=== PATIENT | male | born 1955 | race Caucasian/White ===

== ENCOUNTER 2017-12-26 13:42 | Observation (INO) | payer OTHER ==
[2017-12-26] MEDS ORDERED: METHYLPREDNISOLONE 125 MG INJ ONE (14:19)
[2017-12-26] MEDS ORDERED: CEFTRIAXONE/SWI 1gm 1 GM/10 ML SYR ONE (14:20)
[2017-12-26] MEDS ORDERED: AZITHROMYCIN 500 MG/250 ML BAG ONE (14:20)
[2017-12-26] MEDS ORDERED: ALBUTEROL 2.5 MG/3 ML NEB SOL ONE ×2 (14:20→14:55)
[2017-12-26] MEDS ORDERED: ACETAMINOPHEN 325 MG TABLET ONE (14:20)
[2017-12-26] MEDS ORDERED: IPRATROPIUM BROM 0.5MG/2.5ML ONE (14:20)
[2017-12-26 14:23] LABS: Absolute Lymphocytes (CBC) 1.1 K/uL (0.7-4.9); Absolute Monocytes 0.7 K/uL (0.1-1.3); Absolute Neutrophil 7.9 K/uL (1.8-8.0); Basophils % 0.7 % (0-1.3); Eosinophils % 2.4 % (0-4.4); Hematocrit 44.6 % (39.6-49.0); Lymphocytes % 11.2 % (15.3-44.8); MCH 31.6 pg (27.0-35.0); MCV 93.3 fL (80-100); MPV 8.7 fL (7.6-11.3); Monocytes % 7.3 % (3.3-12.3); RBC Red Blood Cell Count 4.78 M/uL (4.33-5.43)
[2017-12-26 14:30] LABS: Protime INR 0.97
[2017-12-26 14:50] LABS: ALT/SGPT 52 U/L (12-78); AST/SGOT 23 U/L (15-37); Albumin 4.3 g/dL (3.4-5.0); Alkaline Phosphatase 100 U/L (45-117); BUN Blood Urea Nitrogen 13 mg/dL (7-18); Bicarbonate 27 mmol/L (21-32); Bilirubin Direct 0.1 mg/dL (0-0.2); Bilirubin Total 0.6 mg/dL (0.2-1.0); CKMB Creatine Kinase MB < 1.0 ng/mL (0.3-3.6); Creatine Phosphokinase 199 U/L (39-308); Glucose Level 119 mg/dL (74-106); NT PRO-BNP 40 pg/mL (<125); Potassium 3.7 mmol/L (3.5-5.1); Protein, Total 8.3 g/dL (6.4-8.2); Sodium Level 137 mmol/L (136-145)
[2017-12-26] MEDS ORDERED: predniSONE 20 MG TAB ONE (14:55)
--- NOTE | 2017-12-26 15:05 | RAD REPORT ---
EXAM DESCRIPTION: RAD - Chest Single View - 12/26/2017 2:55 pm CLINICAL HISTORY: COUGH Chest pain. COMPARISON: CHEST SINGLE VIEW dated 02/22/2015; CHEST PA AND LAT 2 VIEW dated 12/30/2010; CHEST SINGLE VIEW dated 10/02/2010 FINDINGS: Portable technique limits examination quality. The lungs are grossly clear. The heart is normal in size. No displaced fractures. IMPRESSION: No acute intrathoracic process suspected.
--- NOTE | 2017-12-26 16:00 | ER ---
Nurse's Notes [facility] Name: Scott Liao Age: 62 yrs Sex: Male : 1955 Arrival Date: 12/26/2017 Time: 13:46 Bed 14 Private MD: Guzman Lopez Diagnosis: Hypoxemia;Chronic obstructive pulmonary disease with (acute) exacerbation;Fever, unspecified;Bronchitis, not specified as acute or chronic Presentation: 12/26 13:50 Presenting complaint: Patient states: Productive cough, shortness of breath on aj1 exertion, nasal congestion, and fever since yesterday. Transition of care: patient was not received from another setting of care. Onset of symptoms was August 25, 2017. Risk Assessment: Do you want to hurt yourself or someone else? Patient reports no desire to harm self or others. Initial Sepsis Screen: Does the patient meet any 2 criteria? No. Patient's initial sepsis screen is negative. Does the patient have a suspected source of infection? Yes: Productive cough/pneumonia. Care prior to arrival: None. 13:50 Method Of Arrival: Ambulatory aj1 13:50 Acuity: JOANA 3 aj1 Triage Assessment: 13:54 General: Appears in no apparent distress. comfortable, Behavior is calm, cooperative, aj1 appropriate for age. Pain: Complains of pain in generalized body aches Pain currently is 9 out of 10 on a pain scale. Neuro: Level of Consciousness is awake, alert, obeys commands. Cardiovascular: Patient's skin is warm and dry. Respiratory: Reports shortness of breath on exertion cough that is productive, Airway is patent Respiratory effort is even, unlabored, Respiratory pattern is regular, symmetrical, Onset: The symptoms/episode began/occurred yesterday. 14:29 Respiratory: the patient has mild shortness of breath. tw2 Historical: - Allergies: 13:54 No Known Allergies; aj1 - Home Meds: 13:54 blood pressure medicine [Active]; allopurinol 300 mg Oral tab 1 tab as needed for Gouty aj1 Arthritis [Active]; colchicine 0.6 mg Oral cap 1 cap as needed [Active]; - PMHx: 13:54 Gout; Hypertension; aj1 - PSHx: 13:54 eye surgery; back surgery; Knee surgery; repair of femur fracture- plates in leg; aj1 - Immunization history:: Flu vaccine is not up to date. - Social history:: Smoking status: Patient/guardian denies using tobacco. - Ebola Screening: : Patient denies travel to an Ebola-affected area in the 21 days before illness onset. - Family history:: not pertinent. Screenin:29 Abuse screen: Denies threats or abuse. Nutritional screening: No deficits noted. tw2 Tuberculosis screening: No symptoms or risk factors identified. Fall Risk None identified. Assessment: 13:59 General: Appears in no apparent distress. Behavior is calm, cooperative, appropriate tw2 for age. Pain: Denies pain. Neuro: Level of Consciousness is awake, alert, obeys commands, Oriented to person, place, time, situation. Cardiovascular: Heart tones S1 S2 Capillary refill < 3 seconds Patient's skin is warm and dry. Rhythm is regular. Respiratory: Reports shortness of breath cough that is with nasal congestion since yesterday Airway is patent Respiratory effort is even, unlabored, Respiratory pattern is regular, symmetrical, Breath sounds are diminished bilaterally. Breath sounds with wheezes bilaterally. GI: No signs and/or symptoms were reported involving the gastrointestinal system. Abdomen is flat. GI: Bowel sounds present X 4 quads. : No signs and/or symptoms were reported regarding the genitourinary system. EENT: Reports nasal congestion nasal discharge. Derm: No signs and/or symptoms reported regarding the dermatologic system. Skin is intact, is healthy with good turgor, Skin temperature is warm. Musculoskeletal: Circulation, motion, and sensation intact. Range of motion: intact in all extremities. 14:54 Reassessment: Patient appears in no apparent distress at this time. No changes from tw2 previously documented assessment. Patient and/or family updated on plan of care and expected duration. Pain level reassessed. Patient is alert, oriented x 3, equal unlabored respirations, skin warm/dry/pink. 15:44 Respiratory: Breath sounds with wheezes bilaterally. mg2 Vital Signs: 13:54 BP 144 / 92; Pulse 93; Resp 20; Temp 100.2(O); Pulse Ox 97% on R/A; Weight 88.45 kg aj1 (R); Height 5 ft. 10 in. (177.80 cm) (R); Pain 9/10; 14:53 BP 129 / 84; Pulse 105; Resp 18; Pulse Ox 96% on R/A; tw2 15:30 BP 125 / 81; Pulse 107; Resp 20; Temp 97.9(O); Pulse Ox 98% ; Pain 0/10; mg2 13:54 Body Mass Index 27.98 (88.45 kg, 177.80 cm) 1 ED Course: 13:46 Patient arrived in ED. rg4 13:46 Guzman Lopez DO is Private Physician. rg4 13:52 Triage completed. aj1 13:54 Arm band placed on Patient placed in an exam room. aj1 13:54 Bed in low position. Adult w/ patient. monitoring coordinator on. Pulse ox on. NIBP on. tw2 13:56 Steffen Escobar MD is Attending Physician. rick 13:57 Ya Wright RN is Primary Nurse. tw2 14:10 First set of blood cultures drawn by me. tw2 14:10 EKG done, by ED staff, reviewed by Steffen Escobar MD. dh3 14:11 Inserted saline lock: 22 gauge in right antecubital area, using aseptic technique. tw2 Blood collected. 14:20 Flu and/or RSV swab sent to lab. dh3 14:23 Second set of blood cultures drawn 2nd site. tw2 14:26 Second set of blood cultures drawn by me, by venipuncture 23G to left ac. dh3 14:52 X-ray completed. Portable x-ray completed in exam room. Patient tolerated procedure ag1 well. 14:53 XRAY Chest (1 view) In Process Unspecified. EDMS 15:03 Report given to RENETTA Fuller. tw2 15:04 Primary Nurse role handed off by Ya Wright RN tw2 15:30 Lucas Cardona RN is Primary Nurse. mg2 15:58 Thalia Pichardo MD is Hospitalizing Provider. rick 17:01 No provider procedures requiring assistance completed. Patient admitted, IV remains in mg2 place. Administered Medications: 14:22 Drug: SOLU-Medrol 125 mg Route: IVP; Site: right antecubital; tw2 14:28 Follow up: Response: No adverse reaction tw2 14:22 Drug: Albuterol - atroVENT (3:1) (2.5 mg - 0.5 mg) 3 ml Route: Nebulizer; tw2 14:55 Follow up: Response: No adverse reaction tw2 14:22 Drug: Tylenol 650 mg Route: PO; tw2 15:42 Follow up: Response: No adverse reaction; Temperature is decreased mg2 14:25 Drug: Rocephin - (cefTRIAXone) 1 grams Route: IVPB; Infused Over: 5 mins; Site: right tw2 antecubital; 14:30 Follow up: Response: No adverse reaction; IV Status: Completed infusion tw2 14:35 Drug: Zithromax 500 mg Route: IVPB; Infused Over: 1 hrs; Site: right antecubital; tw2 15:42 Follow up: Response: No adverse reaction; IV Status: Completed infusion mg2 14:53 Drug: Albuterol 5 mg Route: Inhalation; tw2 14:55 Drug: predniSONE 60 mg Route: PO; tw2 15:00 Follow up: Response: No adverse reaction tw2 Outcome: 15:59 Decision to Hospitalize by Provider. rick 17:24 Admitted to Tele mg2 17:24 Admitted to Tele accompanied by tech, via wheelchair, room 406, with chart, Report called to RENETTA Patel 17:24 Condition: stable 17:24 Instructed on the need for admit, Demonstrated understanding of instructions. 17:54 Patient left the ED. iw Signatures: Dispatcher [employer] EDSierra Campos RN RN Steffen Real MD MD cha Williams, Irene RN Angela Cortes ag1 Ya Wright RN RN 2 Wendie Chavez 4 Jeannette Nichols 3 Lucas Cardona RN RN mg2 Corrections: (The following items were deleted from the chart) 14:12 14:11 Inserted saline lock: 22 gauge in right antecubital area, using aseptic tw2 technique. Blood collected. tw2 14:12 14:10 First set of blood cultures drawn by ED staff, tw2 tw2
--- NOTE | 2017-12-26 16:00 | EDPHYS ---
Physician Documentation [facility] Name: Scott Liao Age: 62 yrs Sex: Male : 1955 Arrival Date: 12/26/2017 Time: 13:46 Bed 14 Private MD: Guzman Lopez ED Physician Steffen Escobar HPI: 12/26 14:11 This 62 yrs old Male presents to ER via Ambulatory with complaints of Cough, rick Breathing Difficulty. 14:11 The patient or guardian reports airway noise, cough. Onset: The symptoms/episode rick began/occurred 2 day(s) ago. Severity of symptoms: At their worst the symptoms were mild, in the emergency department the symptoms are unchanged. Modifying factors: The symptoms are alleviated by nothing, the symptoms are aggravated by nothing. Associated signs and symptoms: The patient has no apparent associated signs or symptoms. The patient has not experienced similar symptoms in the past. Historical: - Allergies: 13:54 No Known Allergies; aj1 - Home Meds: 13:54 blood pressure medicine [Active]; allopurinol 300 mg Oral tab 1 tab as needed for Gouty aj1 Arthritis [Active]; colchicine 0.6 mg Oral cap 1 cap as needed [Active]; - PMHx: 13:54 Gout; Hypertension; aj1 - PSHx: 13:54 eye surgery; back surgery; Knee surgery; repair of femur fracture- plates in leg; aj1 - Immunization history:: Flu vaccine is not up to date. - Social history:: Smoking status: Patient/guardian denies using tobacco. - Ebola Screening: : Patient denies travel to an Ebola-affected area in the 21 days before illness onset. - Family history:: not pertinent. ROS: 14:11 Constitutional: Negative for fever, chills, and weight loss, Eyes: Negative for injury, rick pain, redness, and discharge, ENT: Negative for injury, pain, and discharge, Neck: Negative for injury, pain, and swelling, Cardiovascular: Negative for chest pain, palpitations, and edema, Abdomen/GI: Negative for abdominal pain, nausea, vomiting, diarrhea, and constipation, Back: Negative for injury and pain, : Negative for injury, bleeding, discharge, and swelling, MS/Extremity: Negative for injury and deformity, Skin: Negative for injury, rash, and discoloration, Neuro: Negative for headache, weakness, numbness, tingling, and seizure, Psych: Negative for depression, anxiety, suicide ideation, homicidal ideation, and hallucinations, Allergy/Immunology: Negative for hives, rash, and allergies, Endocrine: Negative for neck swelling, polydipsia, polyuria, polyphagia, and marked weight changes, Hematologic/Lymphatic: Negative for swollen nodes, abnormal bleeding, and unusual bruising. 14:11 Respiratory: Positive for cough, shortness of breath, wheezing, inspiratory, expiratory. Exam: 14:11 Constitutional: This is a well developed, well nourished patient who is awake, alert, rick and in no acute distress. Head/Face: Normocephalic, atraumatic. Eyes: Pupils equal round and reactive to light, extra-ocular motions intact. Lids and lashes normal. Conjunctiva and sclera are non-icteric and not injected. Cornea within normal limits. Periorbital areas with no swelling, redness, or edema. ENT: Nares patent. No nasal discharge, no septal abnormalities noted. Tympanic membranes are normal and external auditory canals are clear. Oropharynx with no redness, swelling, or masses, exudates, or evidence of obstruction, uvula midline. Mucous membranes moist. Neck: Trachea midline, no thyromegaly or masses palpated, and no cervical lymphadenopathy. Supple, full range of motion without nuchal rigidity, or vertebral point tenderness. No Meningismus. Chest/axilla: Normal chest wall appearance and motion. Nontender with no deformity. No lesions are appreciated. Cardiovascular: Regular rate and rhythm with a normal S1 and S2. No gallops, murmurs, or rubs. Normal PMI, no JVD. No pulse deficits. Abdomen/GI: Soft, non-tender, with normal bowel sounds. No distension or tympany. No guarding or rebound. No evidence of tenderness throughout. Back: No spinal tenderness. No costovertebral tenderness. Full range of motion. Male : Normal genitalia with no discharge or lesions. Skin: Warm, dry with normal turgor. Normal color with no rashes, no lesions, and no evidence of cellulitis. MS/ Extremity: Pulses equal, no cyanosis. Neurovascular intact. Full, normal range of motion. Neuro: Awake and alert, GCS 15, oriented to person, place, time, and situation. Cranial nerves II-XII grossly intact. Motor strength 5/5 in all extremities. Sensory grossly intact. Cerebellar exam normal. Normal gait. Psych: Awake, alert, with orientation to person, place and time. Behavior, mood, and affect are within normal limits. 14:11 Respiratory: the patient does not display signs of respiratory distress, Respirations: normal, no acute changes, labored breathing, that is mild, Breath sounds: bronchial sounds, decreased breath sounds, rhonchi, wheezing: inspiratory expiratory 15:56 Musculoskeletal/extremity: DVT Exam: No signs of deep vein thrombosis. no pain, no rick swelling, no tenderness, negative Homans' sign noted on exam, no appreciated bluish discoloration, no erythema, no increased warmth. Vital Signs: 13:54 BP 144 / 92; Pulse 93; Resp 20; Temp 100.2(O); Pulse Ox 97% on R/A; Weight 88.45 kg aj1 (R); Height 5 ft. 10 in. (177.80 cm) (R); Pain 9/10; 14:53 BP 129 / 84; Pulse 105; Resp 18; Pulse Ox 96% on R/A; tw2 15:30 BP 125 / 81; Pulse 107; Resp 20; Temp 97.9(O); Pulse Ox 98% ; Pain 0/10; mg2 13:54 Body Mass Index 27.98 (88.45 kg, 177.80 cm) aj1 MDM: 13:56 Patient medically screened. [facility] 14:13 Data reviewed: vital signs, nurses notes, lab test result(s), EKG, radiologic studies, [facility] CT scan, plain films. 12/26 14:03 Order name: Basic Metabolic Panel; Complete Time: 14:54 tw2 12/26 14:03 Order name: CBC with Diff; Complete Time: 14:40 tw2 12/26 14:03 Order name: Ckmb; Complete Time: 14:54 tw2 12/26 14:03 Order name: CPK; Complete Time: 14:54 tw2 12/26 14:03 Order name: LFT's; Complete Time: 14:54 tw2 12/26 14:03 Order name: Magnesium; Complete Time: 14:54 tw2 12/26 14:03 Order name: NT PRO-BNP; Complete Time: 14:54 tw2 12/26 14:03 Order name: PT-INR; Complete Time: 14:40 12/26 14:03 Order name: Ptt, Activated; Complete Time: 14:40 12/26 14:03 Order name: Troponin (emerg Dept Use Only); Complete Time: 14:54 12/26 14:03 Order name: XRAY Chest (1 view); Complete Time: 15:47 12/26 14:03 Order name: Blood Culture Adult (2) [facility] 12/26 14:10 Order name: Influenza Screen (a \T\ B); Complete Time: 14:40 [facility] 12/26 14:03 Order name: EKG; Complete Time: 14:04 12/26 14:03 Order name: Cardiac monitoring; Complete Time: 14:04 12/26 14:03 Order name: EKG - Nurse/Tech; Complete Time: 14:28 12/26 14:03 Order name: IV Saline Lock; Complete Time: 14:28 12/26 14:03 Order name: Labs collected and sent; Complete Time: 14:28 12/26 14:03 Order name: O2 Per Protocol; Complete Time: 14:04 12/26 14:03 Order name: O2 Sat Monitoring; Complete Time: 14:04 tw2 Administered Medications: 14:22 Drug: SOLU-Medrol 125 mg Route: IVP; Site: right antecubital; tw2 14:28 Follow up: Response: No adverse reaction tw2 14:22 Drug: Albuterol - atroVENT (3:1) (2.5 mg - 0.5 mg) 3 ml Route: Nebulizer; tw2 14:55 Follow up: Response: No adverse reaction tw2 14:22 Drug: Tylenol 650 mg Route: PO; tw2 15:42 Follow up: Response: No adverse reaction; Temperature is decreased mg2 14:25 Drug: Rocephin - (cefTRIAXone) 1 grams Route: IVPB; Infused Over: 5 mins; Site: right tw2 antecubital; 14:30 Follow up: Response: No adverse reaction; IV Status: Completed infusion tw2 14:35 Drug: Zithromax 500 mg Route: IVPB; Infused Over: 1 hrs; Site: right antecubital; tw2 15:42 Follow up: Response: No adverse reaction; IV Status: Completed infusion mg2 14:53 Drug: Albuterol 5 mg Route: Inhalation; tw2 14:55 Drug: predniSONE 60 mg Route: PO; tw2 15:00 Follow up: Response: No adverse reaction tw2 Disposition: 12/26/17 15:59 Hospitalization ordered by Thalia Pichardo for Observation. Preliminary diagnosis are Hypoxemia, Chronic obstructive pulmonary disease with (acute) exacerbation, Fever, unspecified, Bronchitis, not specified as acute or chronic. - Bed requested for Telemetry/MedSurg (observation). - Status is Observation. iw - Condition is Fair. - Problem is new. - Symptoms have improved. UTI on Admission? No Signatures: Dispatcher [employer] EDMS Cristina Le Angela RN RN aj1 Steffen Escobar MD MD cha Williams, Irene, RN RN iw Ya Wright RN RN tw2 Lucas Cardona RN mg2 Corrections: (The following items were deleted from the chart) 16:38 15:59 Hospitalization Ordered by Thalia Pichardo MD for Observation. Preliminary bd diagnosis is Hypoxemia; Chronic obstructive pulmonary disease with (acute) exacerbation; Fever, unspecified; Bronchitis, not specified as acute or chronic. Bed requested for Telemetry/MedSurg (observation). Status is Observation. Condition is Fair. Problem is new. Symptoms have improved. UTI on Admission? No. rick 17:54 16:38 12/26/2017 15:59 Hospitalization Ordered by Thalia Pichardo MD for Observation. iw Preliminary diagnosis is Hypoxemia; Chronic obstructive pulmonary disease with (acute) exacerbation; Fever, unspecified; Bronchitis, not specified as acute or chronic. Bed requested for Telemetry/MedSurg (observation). Status is Observation. Condition is Fair. Problem is new. Symptoms have improved. UTI on Admission? No. bd
[2017-12-26] MEDS ORDERED: ONDANSETRON 4 MG/2 ML VIAL IV PRN (18:17)
[2017-12-26] MEDS ORDERED: ACETAMINOPHEN 500 MG TAB PO PRN (18:17)
[2017-12-26] MEDS ORDERED: ZOLPIDEM TARTRATE 5 MG TABLET PO PRN (18:17)
[2017-12-26] MEDS ORDERED: COLCHICINE 0.6 MG TAB PO ONE (18:25)
[2017-12-26] MEDS: NA CHLORIDE 0.9% 1,000 ML IV SCH (19:06)
[2017-12-26] MEDS: METHYLPREDNISOLONE 40 MG INJ IV SCH (19:07)
[2017-12-26] MEDS ORDERED: ALBUTEROL 2.5 MG/3 ML NEB SOL NEB SCH (20:00)
[2017-12-26] MEDS ORDERED: Levofloxacin 750mg IV 750 MG/150 ML BAG IV SCH (20:00)
[2017-12-26] MEDS ORDERED: ENOXAPARIN 40 MG/0.4 ML SQ SCH (20:00)
[2017-12-26] MEDS: ALBUTEROL 2.5 MG/3 ML NEB SOL NEB SCH (20:05)
[2017-12-26] MEDS: IPRATROPIUM BROM 0.5MG/2.5ML NEB SCH (20:05)
--- NOTE | 2017-12-26 21:27 | HP ---
Date of Admission: 12/26/2017 Reason For Admission: Shortness of breath. History Of Present Illness: This is a 62-year-old gentleman with past medical history significant fo r hypertension and gout, who presented with history of 2 days of progressive shortness of breath that got much worse last night, associated with productive cough, yellow white sputum. The patient denie s any history of smoking, but he dips tobacco. In the emergency room, he was evaluated. Chest x-ray done and was negative. CBC was within normal limits, also CMP. The patient was started on IV antib iotic with ceftriaxone and Zithromax and given Solu-Medrol for presumed bronchitis versus COPD. The patient currently is feeling much better. He is on room air. He thinks his breathing is much better since he got breathing treatment. Review of Systems: Otherwise negative. Past Medical History: Positive for hypertension, gout. Past Surgical History: Significant for eye surgery, back surgery, knee surgery, repair of femoral fr acture. Allergies: NONE. Social History: The patient is . He has 3 kids. 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 He does not use any drugs. He drink socially and dips tobacco. Family History: Significant for father of CVA. Mother has COPD, and she is in poor shape. Medication List: He is on allopurinol 300 mg orally once a day, colchicine 0.6 mg orally once a day, and blood pressure medication that he is not sure about. Review of Systems: Denies any fever, chills, night sweats, dizziness, lightheaded, headache, blurred vision. He does pedroza ve cough, he had sputum. He had shortness of breath as I mentioned above. There is no chest pain, p alpitations, PND, orthopnea, or dyspnea on exertion. No lower extremity edema. No nausea, vomiting, abdominal pain, change in bowel movement, diarrhea, constipation, dysuria, frequency, urgency, hemat uria. There is no history of depression, anxiety, seizure, or stroke. Physical Examination: Vital Signs: Currently, blood pressure is 144/92, respiratory rate 20, pulse 93, temperature 100.2 i n the emergency room, saturating 97% on room air. General: He is alert and oriented x3. Does not look in any distress. HEENT: Atraumatic, normocephalic. PERRLA. Oral mucosa is moist. Neck: Supple. No JVD. No carotid bruits. Chest: Clear to auscultation. Good air entry. Heart: Regular rate and rhythm. S1, S2 normal. No gallop or murmur. Abdomen: Soft, nontender. No masses. No hepatosplenomegaly. Positive bowel sounds. Extremities: No clubbing, cyanosis, or edema. No calf tenderness. Neurologic: Grossly intact. Cranial exam 2 through 12 intact. Normal sensation. Normal reflexes. Normal muscle strength. Laboratory Data: Labs done in the emergency room which showed CBC within normal, except left shift w ith neutrophils 78%. Chemistry within normal except for GFR of 76, glucose 119. Chest x-ray was negative. Assessment And Plan: This 62-year-old gentleman with past medical history significant for gout and h ypertension presented with progressive shortness of breath. 1.Shortness of breath. Most likely, bronchitis, acute. We will continue the patient on IV antibiot ics started in the emergency room with ceftriaxone and Zithromax. The patient was already started on Solu-Medrol, but I doubt he has chronic obstructive pulmonary disease as patient was not even wheezi ng and he does not actively smoke. We will continue Solu-Medrol till a.m. and then we will switch to a low dose of prednisone. We will continue inhaler every 6 hours with albuterol and Atrovent. 2.Hypertension. We will resume his home medication when we get the list from the pharmacy. 3.Gout. We will resume his colchicine and allopurinol as before. 4.Deep vein thrombosis prophylaxis with Lovenox. 5.We will discharge him home in a.m. if he is doing better with oral antibiotic. SUSANNE/CINTHIA Voice ID: [id number]
[2017-12-27] MEDS: METHYLPREDNISOLONE 40 MG INJ IV SCH ×3 (00:45→11:20)
[2017-12-27] MEDS: NA CHLORIDE 0.9% 1,000 ML IV SCH ×2 (00:45→08:43)
[2017-12-27] MEDS: IPRATROPIUM BROM 0.5MG/2.5ML NEB SCH ×3 (01:21→13:10)
[2017-12-27] MEDS: ALBUTEROL 2.5 MG/3 ML NEB SOL NEB SCH ×3 (01:21→13:10)
[2017-12-27 01:37] VITALS: BMI 27.9
[2017-12-27 05:36] LABS: Basophils % 0.3 % (0-1.3); Eosinophils % 0.1 % (0-4.4); Hematocrit 38.3 % (39.6-49.0); Lymphocytes % 7.3 % (15.3-44.8); MCH 32.2 pg (27.0-35.0); MCV 93.4 fL (80-100); MPV 8.9 fL (7.6-11.3); Monocytes % 1.2 % (3.3-12.3)
[2017-12-27 05:37] LABS: Absolute Lymphocytes (CBC) 0.6 K/uL (0.7-4.9); Absolute Monocytes 0.1 K/uL (0.1-1.3); Absolute Neutrophil 7.2 K/uL (1.8-8.0)
[2017-12-27 05:56] LABS: Albumin 3.5 g/dL (3.4-5.0); Bilirubin Total 0.2 mg/dL (0.2-1.0); Potassium 3.6 mmol/L (3.5-5.1); Protein, Total 7.1 g/dL (6.4-8.2)
[2017-12-27 06:17] LABS: Blood Morphology Comment NOT SEEN (NOT SEEN); Platelet Estimate ADEQ
[2017-12-27] MEDS ORDERED: ALLOPURINOL 300 MG TAB PO SCH (09:00)
[2017-12-27] MEDS ORDERED: CEFOTAXIME SODIUM 2 GM VIAL IV SCH (09:00)
[2017-12-27] MEDS ORDERED: AZITHROMYCIN IV 500 MG in NA CHLORIDE 0.9% 250 ML IVPB SCH (09:00)
[2017-12-27] MEDS ORDERED: CEFTRIAXONE/SWI 2gm 2 GM/20 ML SYR IV SCH (09:00)
--- NOTE | 2017-12-27 10:38 | EKG ---
Test Date: 2017-12-26 Test Time: 14:07:26 Parking Lot Attendant And Cashier: PRASAD MEASUREMENT RESULTS: Intervals: Rate: 94 OH: 144 QRSD: 110 QT: 350 QTc: 437 [place]: P: 29 OH: 144 QRS: 19 T: 38 INTERPRETIVE STATEMENTS: Normal sinus rhythm Normal ECG Compared to ECG 02/22/2015 10:45:27 Left ventricular hypertrophy no longer present Electronically Signed On 12-27-17 10:38:06 CDT by Junior Rendon
[2017-12-27 12:16] VITALS: BP 131/76; TEMP 98.5; O2SAT 94
--- NOTE | 2017-12-27 14:31 | DS ---
Discharge Diagnoses: 1.Bronchitis. 2.Gout. 3.Hyperlipidemia. 4.? History of hypertension. Consult: None. Procedure: Chest x-ray done in the emergency room was negative. For history of present illness, please see my note from yesterday. Hospital Course: Initially, the patient presented with progressive shortness of breath at home. In the ER, he was evaluated. Sputum culture and blood culture were pending done, but influenza screen w as negative. The patient was started on IV antibiotic, ceftriaxone, and Zithromax. Chest x-ray did not show any infiltrates. He also placed on nebulizer. He did not require oxygen while inpatient. He was observed overnight. He did very well. He will be discharged today in stable condition. I sw itched his antibiotic to Levaquin 500 mg for 7 days' course and he also has Medrol Ronald. I doubt he h as COPD and the patient was not wheezing, but the patient felt well with steroids, so we will continu e that by discharge. Discharge Condition: Stable. Discharge Diet: Cardiac. Discharge Followup: With primary care physician in 1 week. Discharge Medications: Levaquin 500 mg for 7 days, Medrol Ronald as directed, Lipitor 20 mg orally once a day before, colchicine/probenecid 1 tablet orally once a day, allopurinol 300 mg 1 tablet once a d ay. Discharge Physical Examination: Vital Signs: Blood pressure is 131/76, respiratory rate 20, pulse 9 1, temperature 98.5, and saturating 94% on room air. General: The patient is fully alert and oriented x3. Does not look in any distress. HEENT: Atraumatic, normocephalic. PERRLA. Oral mucosa is moist. Neck: Supple. No JVD. No carotid bruits. Chest: Clear to auscultation. Good air entry. Heart: Regular rate and rhythm. S1, S2 normal. No gallop or murmur. Abdomen: Soft, nontender. No masses. No hepatosplenomegaly. Positive bowel sounds. Extremities: No clubbing, cyanosis, or edema. No calf tenderness. Neurologic: Grossly intact. SUSANNE/CINTHIA Voice ID: [id number] Report ID: [id number]
== END 2017-12-27 14:37 | disposition home or self-care (01) ==
LOC: ER 13:42 → ERHOLD 16:00 → 4TH 17:22
PROVIDERS: ADMIT Internal Medicine; ATTEND Internal Medicine
DX: J20.9 Acute bronchitis, unspecified (principal); M10.9 Gout, unspecified; E78.5 Hyperlipidemia, unspecified; F17.220 Nicotine dependence, chewing tobacco, uncomplicated; I10 Essential (primary) hypertension
CPT/HCPCS: 36415 ×2; 71045; 80048; 80053; 80076; 82550; 82553; 83735; 83880; 84484; 85025 ×2; 85610; 85730; 87040 ×2; 87070; 87205; 87804 ×2; 93005; 94640; 96365; 96375; 99285; G0378 ×2; J0456 ×2; J0696 ×2; J1650; J2920 ×4; J2930; J7030 ×3; J7512

== ENCOUNTER 2018-02-22 09:33 | Emergency (ER) | payer OTHER ==
[2018-02-22] MEDS ORDERED: predniSONE 20 MG TAB ONE (10:19)
[2018-02-22] MEDS ORDERED: COLCHICINE 0.6 MG TAB ONE ×2 (10:19→11:40)
[2018-02-22] MEDS ORDERED: INDOMETHACIN 25 MG CAP PO ONE (10:30)
--- NOTE | 2018-02-22 11:42 | ER ---
Nurse's Notes [facility] Name: Scott Liao Age: 62 yrs Sex: Male : 1955 Arrival Date: 02/22/2018 Time: 09:38 Bed 13 Private MD: Guzman Lopez Diagnosis: Gout Presentation: 02/22 09:39 Presenting complaint: Patient states: Right elbow pain x 2 days. Denies injury. Hx of hb gout. Transition of care: patient was not received from another setting of care. Transition of care:. Onset of symptoms was February 21, 2018. Risk Assessment: Do you want to hurt yourself or someone else? Patient reports no desire to harm self or others. Care prior to arrival: None. 09:39 Method Of Arrival: Ambulatory hb 09:39 Acuity: JOANA 3 hb 10:35 Initial Sepsis Screen: Does the patient meet any 2 criteria? No. Patient's initial tw2 sepsis screen is negative. Does the patient have a suspected source of infection? No. Patient's initial sepsis screen is negative. Triage Assessment: 10:35 General: Appears in no apparent distress. Injury Description: none. tw2 Historical: - Allergies: 09:41 No Known Allergies; hb - Home Meds: 09:41 allopurinol 300 mg Oral tab 1 tab as needed for Gouty Arthritis [Active]; colchicine hb 0.6 mg Oral cap 1 cap as needed [Active]; - PMHx: 09:41 Hypertension; Gout; hb - PSHx: 09:41 back surgery; eye surgery; Knee surgery; repair of femur fracture- plates in leg; hb - Immunization history:: Adult Immunizations up to date. - Social history:: Smoking status: Patient/guardian denies using tobacco. - Ebola Screening: : No symptoms or risks identified at this time. Screenin:04 Abuse screen: Denies threats or abuse. Nutritional screening: No deficits noted. tw2 Tuberculosis screening: No symptoms or risk factors identified. Fall Risk None identified. Assessment: 09:50 General: Appears in no apparent distress. Behavior is calm, cooperative, appropriate tw2 for age. Pain: Complains of pain in right elbow. Neuro: Level of Consciousness is awake, alert, obeys commands, Oriented to person, place, time, situation. Cardiovascular: Denies chest pain, shortness of breath, Heart tones S1 S2 Capillary refill < 3 seconds Patient's skin is warm and dry. Respiratory: Airway is patent Respiratory effort is even, unlabored, Respiratory pattern is regular, symmetrical, Breath sounds are clear bilaterally. GI: No signs and/or symptoms were reported involving the gastrointestinal system. : No signs and/or symptoms were reported regarding the genitourinary system. EENT: No signs and/or symptoms were reported regarding the EENT system. Derm: Skin is intact, is healthy with good turgor, Skin is dry, Skin temperature is warm hot. Musculoskeletal: Range of motion: limited in right elbow. 10:16 Reassessment: Indomethacin not available in pxyis , faxed to pharmacy. tw2 10:33 Reassessment: Patient appears in no apparent distress at this time. No changes from tw2 previously documented assessment. Patient and/or family updated on plan of care and expected duration. Pain level reassessed. Patient is alert, oriented x 3, equal unlabored respirations, skin warm/dry/pink. 11:47 Reassessment: Patient appears in no apparent distress at this time. No changes from tw2 previously documented assessment. Patient and/or family updated on plan of care and expected duration. Pain level reassessed. Patient is alert, oriented x 3, equal unlabored respirations, skin warm/dry/pink. Vital Signs: 09:41 BP 149 / 99; Pulse 73; Resp 16; Temp 97.9; Pulse Ox 100% on R/A; Weight 86.18 kg; hb Height 5 ft. 10 in. (177.80 cm); Pain 7/10; 10:33 BP 138 / 99; Pulse 71; Resp 17; Pulse Ox 96% on R/A; tw2 11:47 BP 142 / 94; Pulse 77; Resp 17; Pulse Ox 100% on R/A; tw2 09:41 Body Mass Index 27.26 (86.18 kg, 177.80 cm) hb ED Course: 09:38 Patient arrived in ED. sb2 09:38 Guzman Lopez DO is Private Physician. sb2 09:41 Triage completed. hb 09:41 Arm band placed on left wrist. hb 09:49 Bed in low position. Call light in reach. Pulse ox on. NIBP on. tw2 09:52 Wade Whipple PA is PHCP. jr8 09:52 Harsha Brambila MD is Attending Physician. jr8 09:56 Ya Wright, RN is Primary Nurse. tw2 11:42 Guzman Lopez DO is Referral Physician. jr8 11:47 No provider procedures requiring assistance completed. Patient did not have IV access tw2 during this emergency room visit. Administered Medications: 10:15 Drug: Colcrys 1.2 mg Route: PO; tw2 11:48 Follow up: Response: No adverse reaction tw2 10:16 Drug: predniSONE 60 mg Route: PO; tw2 11:48 Follow up: Response: No adverse reaction tw2 10:25 Drug: Indomethacin 50 mg Route: PO; tw2 11:49 Follow up: Response: No adverse reaction tw2 11:35 Drug: Colcrys 0.6 mg Route: PO; tw2 11:49 Follow up: Response: No adverse reaction tw2 Outcome: 11:42 Discharge ordered by . jr8 11:48 Discharged to home ambulatory. tw2 11:48 Condition: stable 11:48 Discharge instructions given to patient, Instructed on discharge instructions, follow up and referral plans. no drinking with medication, no driving heavy equipment, medication usage, Demonstrated understanding of instructions, follow-up care, medications, Prescriptions given X 2. 11:48 Patient left the ED. tw2 Signatures: Wade Whipple PA PA jr8 Idalia Carpenter, RN RN Ya Wright RN RN tw2 Juliana Melara sb2
--- NOTE | 2018-02-22 11:42 | EDPHYS ---
Physician Documentation [facility] Name: Scott Liao Age: 62 yrs Sex: Male : 1955 Arrival Date: 02/22/2018 Time: 09:38 Bed 13 Private MD: Guzman Lopez ED Physician Harsha Brambila HPI: 02/22 10:28 This 62 yrs old Male presents to ER via Ambulatory with complaints of Elbow jr8 Pain. 10:28 Onset: The symptoms/episode began/occurred acutely, yesterday. Associated signs and jr8 symptoms: The patient has no apparent associated signs or symptoms. Modifying factors: The patient symptoms are alleviated by nothing, the patient symptoms are aggravated by movement. The patient has experienced similar episodes in the past, a few times. The patient has not recently seen a physician. Patient with history of gout. Stated that he normally gets flare up's in feet. Noticed pain in elbow yesterday that has progressed to redness and decreased ROM. Denies trauma to elbow. Denies fevers or chills. Historical: - Allergies: 09:41 No Known Allergies; hb - Home Meds: 09:41 allopurinol 300 mg Oral tab 1 tab as needed for Gouty Arthritis [Active]; colchicine hb 0.6 mg Oral cap 1 cap as needed [Active]; - PMHx: 09:41 Hypertension; Gout; hb - PSHx: 09:41 back surgery; eye surgery; Knee surgery; repair of femur fracture- plates in leg; hb - Immunization history:: Adult Immunizations up to date. - Social history:: Smoking status: Patient/guardian denies using tobacco. - Ebola Screening: : No symptoms or risks identified at this time. ROS: 11:40 Eyes: Negative for injury, pain, redness, and discharge, ENT: Negative for injury, jr8 pain, and discharge, Neck: Negative for injury, pain, and swelling, Cardiovascular: Negative for chest pain, palpitations, and edema, Respiratory: Negative for shortness of breath, cough, wheezing, and pleuritic chest pain, Abdomen/GI: Negative for abdominal pain, nausea, vomiting, diarrhea, and constipation, Back: Negative for injury and pain, Skin: Negative for injury, rash, and discoloration, Neuro: Negative for headache, weakness, numbness, tingling, and seizure. 11:40 MS/extremity: Positive for decreased range of motion, erythema, pain, swelling, tenderness, of the right elbow. Exam: 11:40 Eyes: Pupils equal round and reactive to light, extra-ocular motions intact. Lids and jr8 lashes normal. Conjunctiva and sclera are non-icteric and not injected. Cornea within normal limits. Periorbital areas with no swelling, redness, or edema. ENT: Nares patent. No nasal discharge, no septal abnormalities noted. Tympanic membranes are normal and external auditory canals are clear. Oropharynx with no redness, swelling, or masses, exudates, or evidence of obstruction, uvula midline. Mucous membranes moist. Neck: Trachea midline, no thyromegaly or masses palpated, and no cervical lymphadenopathy. Supple, full range of motion without nuchal rigidity, or vertebral point tenderness. No Meningismus. Cardiovascular: Regular rate and rhythm with a normal S1 and S2. No gallops, murmurs, or rubs. Normal PMI, no JVD. No pulse deficits. Respiratory: Lungs have equal breath sounds bilaterally, clear to auscultation and percussion. No rales, rhonchi or wheezes noted. No increased work of breathing, no retractions or nasal flaring. Abdomen/GI: Soft, non-tender, with normal bowel sounds. No distension or tympany. No guarding or rebound. No evidence of tenderness throughout. Back: No spinal tenderness. No costovertebral tenderness. Full range of motion. Skin: Warm, dry with normal turgor. Normal color with no rashes, no lesions, and no evidence of cellulitis. Neuro: Awake and alert, GCS 15, oriented to person, place, time, and situation. Cranial nerves II-XII grossly intact. Motor strength 5/5 in all extremities. Sensory grossly intact. Cerebellar exam normal. Normal gait. 11:40 Musculoskeletal/extremity: Extremities: grossly normal except: noted in the right elbow: erythema, pain, swelling, tenderness, ROM: full active range of motion, full passive range of motion, limited active range of motion due to pain, limited passive range of motion due to pain, Circulation is intact in all extremities. Sensation intact. Vital Signs: 09:41 BP 149 / 99; Pulse 73; Resp 16; Temp 97.9; Pulse Ox 100% on R/A; Weight 86.18 kg; hb Height 5 ft. 10 in. (177.80 cm); Pain 7/10; 10:33 BP 138 / 99; Pulse 71; Resp 17; Pulse Ox 96% on R/A; tw2 11:47 BP 142 / 94; Pulse 77; Resp 17; Pulse Ox 100% on R/A; tw2 09:41 Body Mass Index 27.26 (86.18 kg, 177.80 cm) hb MDM: 09:52 Patient medically screened. jr8 11:40 Data reviewed: vital signs, nurses notes. Data interpreted: Pulse oximetry: on room air jr8 is 96 %. Interpretation: normal. Counseling: I had a detailed discussion with the patient and/or guardian regarding: the historical points, exam findings, and any diagnostic results supporting the discharge/admit diagnosis, the need for outpatient follow up, a family practitioner, to return to the emergency department if symptoms worsen or persist or if there are any questions or concerns that arise at home. Response to treatment: the patient's symptoms have markedly improved after treatment. ED course: Patient with less pain and with more range of motion . Administered Medications: 10:15 Drug: Colcrys 1.2 mg Route: PO; tw2 11:48 Follow up: Response: No adverse reaction tw2 10:16 Drug: predniSONE 60 mg Route: PO; tw2 11:48 Follow up: Response: No adverse reaction tw2 10:25 Drug: Indomethacin 50 mg Route: PO; tw2 11:49 Follow up: Response: No adverse reaction tw2 11:35 Drug: Colcrys 0.6 mg Route: PO; tw2 11:49 Follow up: Response: No adverse reaction tw2 Disposition: 17:43 Co-signature as Attending Physician, Harsha Brambila MD. rn Disposition: 02/22/18 11:42 Discharged to Home. Impression: Gout. - Condition is Stable. - Discharge Instructions: Gout. - Prescriptions for indomethacin 50 mg Oral capsule - take 1 capsule by ORAL route 3 times per day for 7 days To stop as soon as pain and swelling has improved and/or resolved; 21 capsule. Prednisone 20 mg Oral Tablet - take 3 tablet by ORAL route once daily for 5 days; 15 tablet. - Medication Reconciliation Form, Thank You Letter, Antibiotic Education, Prescription Opioid Use, Work release form form. - Follow up: Aglieco, Guzman, DO; When: 2 - 3 days; Reason: Recheck today's complaints, Continuance of care, Re-evaluation by your physician. - Problem is new. - Symptoms have improved. Signatures: Harsha Brambila MD MD rn Roszak, Josh, PA PA jr8 Idalia Carpenter RN RN Ya Wright RN RN tw2 Corrections: (The following items were deleted from the chart) 11:48 11:42 02/22/2018 11:42 Discharged to Home. Impression: Gout. Condition is Stable. Forms tw2 are Medication Reconciliation Form, Thank You Letter, Antibiotic Education, Prescription Opioid Use. Follow up: Guzman Lopez; When: 2 - 3 days; Reason: Recheck today's complaints, Continuance of care, Re-evaluation by your physician. Problem is new. Symptoms have improved. jr8
[2018-02-22 12:37] VITALS: TEMP 97.9
[2018-02-22 12:39] VITALS: BP 142/94; O2SAT 100
== END 2018-02-22 11:48 | disposition home or self-care (01) ==
LOC: ER 09:33
DX: M10.9 Gout, unspecified (principal); I10 Essential (primary) hypertension
CPT/HCPCS: 99283; J7512

== ENCOUNTER 2018-09-14 10:29 | Emergency (ER) | payer OTHER ==
[2018-09-14] MEDS ORDERED: IPRATROPIUM BROM 0.5MG/2.5ML ONE ×3 (11:12→12:16)
[2018-09-14] MEDS ORDERED: METHYLPREDNISOLONE 125 MG INJ ONE (11:12)
[2018-09-14] MEDS ORDERED: ALBUTEROL 2.5 MG/3 ML NEB SOL ONE (11:12)
[2018-09-14] MEDS ORDERED: Magnesium Sulfate 2gm IVPB 2 G/50 ML BAG IV ONE (11:13)
[2018-09-14 11:27] LABS: Absolute Lymphocytes (CBC) 2.7 K/uL (0.7-4.9); Absolute Monocytes 0.6 K/uL (0.1-1.3); Basophils % 1.2 % (0-1.3); Eosinophils % 11.9 % (0-4.4); Hematocrit 43.5 % (39.6-49.0); MPV 8.9 fL (7.6-11.3); Monocytes % 7.1 % (3.3-12.3); RBC Red Blood Cell Count 4.72 M/uL (4.33-5.43)
[2018-09-14 11:29] LABS: Protime INR 0.97
[2018-09-14 11:46] LABS: ALT/SGPT 33 U/L (12-78); AST/SGOT 15 U/L (15-37); Alkaline Phosphatase 87 U/L (45-117); BUN Blood Urea Nitrogen 12 mg/dL (7-18); Bicarbonate 28 mmol/L (21-32); Bilirubin Direct 0.1 mg/dL (0-0.2); Bilirubin Total 0.7 mg/dL (0.2-1.0); Glucose Level 85 mg/dL (74-106); Potassium 3.6 mmol/L (3.5-5.1); Protein, Total 7.7 g/dL (6.4-8.2); Sodium Level 142 mmol/L (136-145); Troponin (Emerg Dept Use Only) < 0.02 ng/mL (0.0-0.045)
--- NOTE | 2018-09-14 12:45 | RAD REPORT ---
EXAM DESCRIPTION: RAD - Chest Pa And Lat (2 Views) - 09/14/2018 12:32 pm CLINICAL HISTORY: Cough and congestion COMPARISON: December 2017 TECHNIQUE: PA and lateral views of the chest were obtained. FINDINGS: The lungs are clear. Parenchymal pattern is similar to comparison. Heart size is normal a nd central vasculature is within normal limits. No pleural effusion or pneumothorax seen. No acute bony finding noted. No aortic abnormality. IMPRESSION: No acute cardiopulmonary process. No significant interval change.
--- NOTE | 2018-09-14 13:01 | EDPHYS ---
Physician Documentation [facility] Name: Scott iLao Age: 63 yrs Sex: Male : 1955 Arrival Date: 09/14/2018 Time: 10:30 Bed 23 Private MD: Guzman Lopez ED Physician José Gandhi HPI: 09/14 11:31 This 63 yrs old Male presents to ER via Ambulatory with complaints of wa Congestion. 11:31 The patient or guardian reports cough, that is constant, with productive sputum, that wa is yellow, difficulty breathing, nasal and chest congestion. Onset: The symptoms/episode began/occurred 1 week(s) ago. Severity of symptoms: At their worst the symptoms were moderate, in the emergency department the symptoms are actually worse, markedly. Modifying factors: The symptoms are alleviated by nothing, the symptoms are aggravated by nothing. Associated signs and symptoms: Pertinent positives: rhinorrhea, Pertinent negatives: chest pain, diarrhea, fever, nausea, sore throat, vomiting. The patient has experienced similar episodes in the past, a few times. The patient has not recently seen a physician. Historical: - Allergies: 10:40 No Known Allergies; aa5 - PMHx: 10:40 Gout; Hypertension; aa5 - PSHx: 10:40 back surgery; eye surgery; Knee surgery; repair of femur fracture- plates in leg; aa5 - Immunization history:: Flu vaccine is not up to date. - Social history:: Smoking status: Patient/guardian denies using tobacco. - Ebola Screening: : No symptoms or risks identified at this time. - Family history:: not pertinent. - Hospitalizations: : No recent hospitalization is reported. ROS: 11:33 Constitutional: Negative for fever, chills, and weight loss, Eyes: Negative for injury, wa pain, redness, and discharge, Neck: Negative for injury, pain, and swelling, Cardiovascular: Negative for chest pain, palpitations, and edema, Abdomen/GI: Negative for abdominal pain, nausea, vomiting, diarrhea, and constipation, Back: Negative for injury and pain, : Negative for injury, bleeding, discharge, and swelling, MS/Extremity: Negative for injury and deformity, Skin: Negative for injury, rash, and discoloration, Neuro: Negative for headache, weakness, numbness, tingling, and seizure, Psych: Negative for depression, anxiety, suicide ideation, homicidal ideation, and hallucinations. 11:33 ENT: Positive for sinus congestion, Negative for ear pain, sore throat. 11:33 Respiratory: Positive for cough, with yellow sputum, shortness of breath, on exertion. wheezing, inspiratory, expiratory. 11:33 All other systems are negative. Exam: 11:34 Constitutional: This is a well developed, well nourished patient who is awake, alert, wa and in no acute distress. Head/Face: Normocephalic, atraumatic. Eyes: Pupils equal round and reactive to light, extra-ocular motions intact. Lids and lashes normal. Conjunctiva and sclera are non-icteric and not injected. Cornea within normal limits. Periorbital areas with no swelling, redness, or edema. ENT: Nares patent. No nasal discharge, no septal abnormalities noted. Tympanic membranes are normal and external auditory canals are clear. Oropharynx with no redness, swelling, or masses, exudates, or evidence of obstruction, uvula midline. Mucous membranes moist. Neck: Trachea midline, no thyromegaly or masses palpated, and no cervical lymphadenopathy. Supple, full range of motion without nuchal rigidity, or vertebral point tenderness. No Meningismus. Chest/axilla: Normal chest wall appearance and motion. Nontender with no deformity. No lesions are appreciated. Cardiovascular: Regular rate and rhythm with a normal S1 and S2. No gallops, murmurs, or rubs. Normal PMI, no JVD. No pulse deficits. Abdomen/GI: Soft, non-tender, with normal bowel sounds. No distension or tympany. No guarding or rebound. No evidence of tenderness throughout. Back: No spinal tenderness. No costovertebral tenderness. Full range of motion. Skin: Warm, dry with normal turgor. Normal color with no rashes, no lesions, and no evidence of cellulitis. MS/ Extremity: Pulses equal, no cyanosis. Neurovascular intact. Full, normal range of motion. Neuro: Awake and alert, GCS 15, oriented to person, place, time, and situation. Cranial nerves II-XII grossly intact. Motor strength 5/5 in all extremities. Sensory grossly intact. Cerebellar exam normal. Normal gait. Psych: Awake, alert, with orientation to person, place and time. Behavior, mood, and affect are within normal limits. 11:34 Respiratory: the patient does not display signs of respiratory distress, Respirations: tachypnea, that is mild, Breath sounds: wheezing: inspiratory expiratory that is moderate, is heard diffusely, Respiratory rate: mild tachypnea Vital Signs: 10:40 BP 131 / 95; Pulse 72; Resp 18 S; Temp 98.2(TE); Pulse Ox 100% on R/A; Weight 88.45 kg aa5 (R); Height 5 ft. 11 in. (180.34 cm) (R); Pain 0/10; 11:48 BP 121 / 96; Pulse 72; Resp 20; Pulse Ox 98% on R/A; aj 13:16 BP 121 / 92; Pulse 78; Resp 20; Pulse Ox 99% on R/A; aj 10:40 Body Mass Index 27.20 (88.45 kg, 180.34 cm) aa5 MDM: 10:41 Patient medically screened. md 11:35 Differential Diagnosis: Bronchitis Upper Respiratory Infection Sinusitis Asthma wa Exacerbation Viral Syndrome Pneumonia. 12:54 Data reviewed: vital signs, nurses notes, lab test result(s), EKG, radiologic studies. md Test interpretation: by ED physician or midlevel provider: EKG: Interp by fl: 1126 hrs: HR 66. sinus. nml axis. nml VT, QT QRS intervals. no acute zonal ischemic changes. nml study. 12:57 Test interpretation: by ED physician or midlevel provider: labs notee wnl limits, wa including troponin. 12:58 Test interpretation: by ED physician or midlevel provider: CXR negative. md 12:58 Response to treatment: the patient's symptoms have markedly improved after treatment. md ED course: improved with ED interventions. will d/c home with medication and pulm f/u. 09/14 10:55 Order name: BMP; Complete Time: 11:57 09/14 10:55 Order name: CBC with Diff; Complete Time: 11:57 09/14 10:55 Order name: XRAY Chest Pa And Lat (2 Views); Complete Time: 12:46 09/14 10:55 Order name: Hepatic Function; Complete Time: 11:57 09/14 10:55 Order name: PT-INR; Complete Time: 11:57 09/14 10:55 Order name: Troponin (emerg Dept Use Only); Complete Time: 11:57 09/14 10:55 Order name: EKG; Complete Time: 10:56 09/14 10:55 Order name: EKG - Nurse/Tech; Complete Time: 12:09 md 09/14 10:55 Order name: IV Saline Lock; Complete Time: 11:16 09/14 10:55 Order name: Labs collected and sent; Complete Time: 11:09/14 10:55 Order name: O2 Per Protocol; Complete Time: 11:09/14 10:55 Order name: O2 Sat Monitoring; Complete Time: 11:16 md Administered Medications: 11:16 Drug: SOLU-Medrol 125 mg Route: IVP; Site: right antecubital; aj 12:09 Follow up: Response: No adverse reaction aj 11:16 Drug: Albuterol - atroVENT (3:1) (2.5 mg - 0.5 mg) 3 ml Route: Nebulizer; aj 12:09 Follow up: Response: Wheezing diminished aj 11:16 Drug: Magnesium Sulfate 2 grams Route: IVPB; Infused Over: 2 hrs; Site: right aj antecubital; 12:09 Follow up: Response: No adverse reaction; IV Status: Completed infusion; IV Intake: 50mlaj 12:09 Drug: Albuterol - atroVENT (3:1) (2.5 mg - 0.5 mg) 3 ml Route: Nebulizer; aj 13:16 Follow up: Response: Wheezing diminished aj Disposition: 09/14/18 13:00 Discharged to Home. Impression: Acute Dyspnea, Acute Bronchitis, Reactive airway disease. - Condition is Stable. - Discharge Instructions: Acute Bronchitis, Adult, Shortness of Breath, [id number]. - Prescriptions for Prednisone 20 mg Oral Tablet - take 2 tablet by ORAL route once daily for 5 days; 10 tablet. cetirizine 10 mg Oral tablet - take 1 tablet by ORAL route once daily; 10 tablet. Albuterol Sulfate 2.5 mg /3 mL (0.083 %) Inhalation Solution for Nebulization - inhale 1 unit by NEBULIZATION route every 8 hours As needed; 1 box. Zithromax Z- Ronald 250 mg Oral Tablet - take 1 tablet by ORAL route as directed for 5 days Day 1 - take two (2) tablets one time. Day 2, 3, 4 , 5 take one (1) tablet once daily.; 6 tablet. Albuterol Sulfate 90 mcg/actuation - inhale 1-2 puff by INHALATION route every 4-6 hours; 1 Inhaler. - Medication Reconciliation Form, Thank You Letter, Antibiotic Education, Prescription Opioid Use form. - Follow up: Kosta Morales MD; When: 2 - 3 days; Reason: Recheck today's complaints. - Problem is new. - Symptoms have improved. - Notes: take medication as prescribed. use the albuterol neb every 6 hours for 2 days then as needed when cough or wheezing. follow up with the lung doctor for further analysis within 2-3 days. return here immediately if your symptoms worsen severely Signatures: Dispatcher [employer] EDMS Roberta Mar RN RN aj Calderon, Audri, RN RN aa5 José Gandhi MD MD wa Corrections: (The following items were deleted from the chart) 11:17 10:55 Cardiac monitoring ordered. sakshi farley 13:18 13:00 09/14/2018 13:00 Discharged to Home. Impression: Acute Dyspnea; Acute Bronchitis; aj Reactive airway disease. Condition is Stable. Forms are Medication Reconciliation Form, Thank You Letter, Antibiotic Education, Prescription Opioid Use. Follow up: Kosta Morales; When: 2 - 3 days; Reason: Recheck today's complaints. Problem is new. Symptoms have improved. sakshi
--- NOTE | 2018-09-14 13:01 | ER ---
Nurse's Notes [facility] Name: Scott Liao Age: 63 yrs Sex: Male : 1955 Arrival Date: 09/14/2018 Time: 10:30 Bed 23 Private MD: Guzman Lopez Diagnosis: Acute Dyspnea;Acute Bronchitis;Reactive airway disease Presentation: 09/14 10:39 Presenting complaint: Patient states: chest congestion, nasal congestion that began 2 aa5 weeks ago. Pt states "I can't really breath out of my nose or my mouth". Pt also c/o cough. Transition of care: patient was not received from another setting of care. Onset of symptoms was August 2018. Risk Assessment: Do you want to hurt yourself or someone else? Patient reports no desire to harm self or others. Initial Sepsis Screen: Does the patient meet any 2 criteria? No. Patient's initial sepsis screen is negative. Does the patient have a suspected source of infection? No. Patient's initial sepsis screen is negative. Care prior to arrival: None. 10:39 Method Of Arrival: Ambulatory aa5 10:39 Acuity: JOANA 3 aa5 Historical: - Allergies: 10:40 No Known Allergies; aa5 - PMHx: 10:40 Gout; Hypertension; aa5 - PSHx: 10:40 back surgery; eye surgery; Knee surgery; repair of femur fracture- plates in leg; aa5 - Immunization history:: Flu vaccine is not up to date. - Social history:: Smoking status: Patient/guardian denies using tobacco. - Ebola Screening: : No symptoms or risks identified at this time. - Family history:: not pertinent. - Hospitalizations: : No recent hospitalization is reported. Screenin:17 Abuse screen: Denies threats or abuse. Denies injuries from another. Nutritional aj screening: No deficits noted. Tuberculosis screening: No symptoms or risk factors identified. Fall Risk None identified. Assessment: 11:17 General: Appears in no apparent distress. comfortable, Behavior is calm, cooperative, aj appropriate for age. Pain: Complains of pain in back and chest Aggravated by cough. Neuro: Level of Consciousness is awake, alert, obeys commands, Oriented to person, place, time, situation, Appropriate for age. Cardiovascular: Reports shortness of breath, Heart tones S1 S2 present Capillary refill < 3 seconds in bilateral fingers Rhythm is regular. Respiratory: Reports shortness of breath cough that is Airway is patent Respiratory effort is even, unlabored, Respiratory pattern is regular, symmetrical, Breath sounds with wheezes bilaterally. Parent/caregiver reports the patient having shortness of breath pain with cough. EENT: Reports nasal congestion nasal discharge. Derm: Skin is intact, is healthy with good turgor, Skin is pink, warm \\T\\ dry. normal. 13:16 Reassessment: Patient appears in no apparent distress at this time. Patient and/or aj family updated on plan of care and expected duration. Pain level reassessed. Patient is alert, oriented x 3, equal unlabored respirations, skin warm/dry/pink. Patient denies pain at this time. Patient states feeling better. Patient states symptoms have improved. Vital Signs: 10:40 BP 131 / 95; Pulse 72; Resp 18 S; Temp 98.2(TE); Pulse Ox 100% on R/A; Weight 88.45 kg aa5 (R); Height 5 ft. 11 in. (180.34 cm) (R); Pain 0/10; 11:48 BP 121 / 96; Pulse 72; Resp 20; Pulse Ox 98% on R/A; aj 13:16 BP 121 / 92; Pulse 78; Resp 20; Pulse Ox 99% on R/A; aj 10:40 Body Mass Index 27.20 (88.45 kg, 180.34 cm) aa5 ED Course: 10:30 Patient arrived in ED. as 10:30 Guzman Lopez DO is Private Physician. as 10:39 Triage completed. aa5 10:39 Arm band placed on. aa5 10:41 José Gandhi MD is Attending Physician. dc 10:45 Roberta Mar, RENETTA is Primary Nurse. aj 11:17 Patient has correct armband on for positive identification. aj 11:17 Inserted saline lock: 20 gauge in right antecubital area, using aseptic technique. aj Blood collected. 11:18 Radiology exam delayed due to patient receiving breathing treatment at this time. [facility] 11:36 EKG done, by environmental health technologist. reviewed by José Gandhi MD. at1 12:22 X-ray completed. Patient tolerated procedure well. Patient moved to radiology via [facility] wheelchair. Patient moved back from radiology. 12:23 XRAY Chest Pa And Lat (2 Views) In Process Unspecified. EDMS 12:59 Kosta Morales MD is Referral Physician. wa 13:16 No provider procedures requiring assistance completed. IV discontinued, intact, aj bleeding controlled, No redness/swelling at site. Pressure dressing applied. Administered Medications: 11:16 Drug: SOLU-Medrol 125 mg Route: IVP; Site: right antecubital; aj 12:09 Follow up: Response: No adverse reaction aj 11:16 Drug: Albuterol - atroVENT (3:1) (2.5 mg - 0.5 mg) 3 ml Route: Nebulizer; aj 12:09 Follow up: Response: Wheezing diminished aj 11:16 Drug: Magnesium Sulfate 2 grams Route: IVPB; Infused Over: 2 hrs; Site: right aj antecubital; 12:09 Follow up: Response: No adverse reaction; IV Status: Completed infusion; IV Intake: 50mlaj 12:09 Drug: Albuterol - atroVENT (3:1) (2.5 mg - 0.5 mg) 3 ml Route: Nebulizer; aj 13:16 Follow up: Response: Wheezing diminished aj Intake: 12:09 IV: 50ml; Total: 50ml. aj Outcome: 13:00 Discharge ordered by . wa 13:16 Discharged to home ambulatory. aj 13:16 Condition: good 13:16 Discharge instructions given to patient, Instructed on discharge instructions, follow up and referral plans. medication usage, Demonstrated understanding of instructions, follow-up care, medications, Prescriptions given X 6 13:18 Patient left the ED. aj Signatures: Dispatcher [employer] EDRoberta Su, RENETTA RN Toshia Henson mh1 Janell Joseph Audri, RN RN aa5 Roberta Gonzalez, .net developer EKG Tat1 José Gandhi MD MD wa
[2018-09-14 13:28] VITALS: TEMP 98.2
[2018-09-14 13:30] VITALS: BP 121/92; O2SAT 99
--- NOTE | 2018-09-14 14:58 | EKG ---
Test Date: 2018-09-14 Test Time: 11:26:51 Manager Document Control: ALY MEASUREMENT RESULTS: Intervals: Rate: 66 LA: 150 QRSD: 116 QT: 408 QTc: 427 [place]: P: 11 LA: 150 QRS: 12 T: 9 INTERPRETIVE STATEMENTS: Normal sinus rhythm Normal ECG Compared to ECG 12/26/2017 14:07:26 No significant changes Electronically Signed On 09-14-18 14:56:50 CDT by Hector Alexis
== END 2018-09-14 13:18 | disposition home or self-care (01) ==
LOC: ER 10:29
DX: J20.9 Acute bronchitis, unspecified (principal); J45.909 Unspecified asthma, uncomplicated; I10 Essential (primary) hypertension; M10.9 Gout, unspecified
CPT/HCPCS: 96365; 93005; 85025; 80048; 36415; 85610; 80076; 84484; 71046; 94640; 96375; 99284; J3475; J2930

== ENCOUNTER 2019-06-06 10:22 | Emergency (ER) | payer OTHER ==
[2019-06-06] MEDS ORDERED: MAGNESIUM SULFATE 1 gm IVPB 1 GM/100 ML BAG IV ONE (11:17)
[2019-06-06] MEDS ORDERED: NA CHLORIDE 0.9% 500 ML ONE (11:17)
[2019-06-06] MEDS ORDERED: METHYLPREDNISOLONE 125 MG INJ ONE (11:17)
[2019-06-06] MEDS ORDERED: LEVALBUTEROL 1.25 MG/3 ML NEB ONE (11:17)
[2019-06-06 11:20] LABS: Absolute Lymphocytes (CBC) 2.3 K/uL (0.7-4.9); Basophils % 0.1 % (0-1.3); Hematocrit 42.8 % (39.6-49.0); Lymphocytes % 26.9 % (15.3-44.8); MPV 8.9 fL (7.6-11.3); RBC Red Blood Cell Count 4.67 M/uL (4.33-5.43)
[2019-06-06 11:52] LABS: Potassium 3.7 mmol/L (3.5-5.1)
--- NOTE | 2019-06-06 12:15 | RAD REPORT ---
EXAM DESCRIPTION: Karla Single View06/06/2019 12:05 pm CLINICAL HISTORY: Shortness of breath COMPARISON: 2019 FINDINGS: The lungs appear clear of acute infiltrate. The heart is normal size IMPRESSION: No acute abnormalities displayed
--- NOTE | 2019-06-06 13:43 | ER ---
Nurse's Notes [facility] Name: Scott Liao Age: 63 yrs Sex: Male : 1955 Arrival Date: 06/06/2019 Time: 10:24 Bed 6 Private MD: Diagnosis: Mild persistent asthma with (acute) exacerbation Presentation: 06/06 10:34 Presenting complaint: Patient states: difficulty breathing X 3 weeks, getting worse, hx iw of asthma, was unable to get his meds, + productive cough, intermittent fever. Transition of care: patient was not received from another setting of care. Onset of symptoms was May 2019. Risk Assessment: Do you want to hurt yourself or someone else? Patient reports no desire to harm self or others. Initial Sepsis Screen: Does the patient meet any 2 criteria? No. Patient's initial sepsis screen is negative. Does the patient have a suspected source of infection? No. Patient's initial sepsis screen is negative. Care prior to arrival: None. 10:34 Method Of Arrival: Ambulatory iw 10:34 Acuity: JOANA 3 iw Historical: - Allergies: 10:37 No Known Allergies; iw - Home Meds: 10:37 None [Active]; iw - PMHx: 10:37 Gout; Hypertension; Asthma; iw - PSHx: 10:37 back surgery; eye surgery; Knee surgery; repair of femur fracture- plates in leg; iw - Immunization history:: Adult Immunizations not up to date. - Social history:: Smoking status: Patient/guardian denies using tobacco. - Ebola Screening: : Patient negative for fever greater than or equal to 101.5 degrees Fahrenheit, and additional compatible Ebola Virus Disease symptoms Patient denies exposure to infectious person Patient denies travel to an Ebola-affected area in the 21 days before illness onset No symptoms or risks identified at this time. - Family history:: not pertinent. - Hospitalizations: : No recent hospitalization is reported. Screenin:49 Abuse screen: Denies threats or abuse. Denies injuries from another. Nutritional sv screening: No deficits noted. Tuberculosis screening: No symptoms or risk factors identified. Fall Risk None identified. Assessment: 10:50 General: Appears in no apparent distress. uncomfortable, well developed, Behavior is sv calm, cooperative, appropriate for age. Pain: Denies pain. Neuro: Level of Consciousness is awake, alert, obeys commands, Oriented to person, place, time, situation, Moves all extremities. Full function Gait is steady, Speech is normal. Cardiovascular: Heart tones S1 S2 present Patient's skin is warm and dry. Pulses are 3+ in right radial artery and left radial artery Rhythm is sinus rhythm. Respiratory: Reports shortness of breath at rest on exertion cough that is productive, persistent Airway is patent Respiratory effort is even, unlabored, Respiratory pattern is symmetrical, tachypnea Breath sounds with wheezes bilaterally. Derm: Skin is pink, warm \T\ dry. 11:45 Reassessment: Patient appears in no apparent distress at this time. Patient and/or hb family updated on plan of care and expected duration. Pain level reassessed. Patient is alert, oriented x 3, equal unlabored respirations, skin warm/dry/pink. 12:30 Reassessment: Patient appears in no apparent distress at this time. Patient and/or hb family updated on plan of care and expected duration. Pain level reassessed. Patient is alert, oriented x 3, equal unlabored respirations, skin warm/dry/pink. 13:30 Reassessment: Patient appears in no apparent distress at this time. Patient and/or hb family updated on plan of care and expected duration. Pain level reassessed. Patient is alert, oriented x 3, equal unlabored respirations, skin warm/dry/pink. Vital Signs: 10:37 BP 119 / 84; Pulse 83; Resp 18; Temp 98.9; Pulse Ox 98% on R/A; Weight 86.18 kg; Height iw 5 ft. 10 in. (177.80 cm); Pain 7/10; 11:23 BP 134 / 93; Pulse 73; Resp 17; Pulse Ox 99% ; hb 12:32 BP 129 / 87; Pulse 87; Resp 16; Pulse Ox 97% ; sv 13:10 BP 124 / 89; Pulse 86; Resp 15; Pulse Ox 96% ; sv 13:44 BP 120 / 83; Pulse 86; Resp 16; Pulse Ox 97% ; sv 10:37 Body Mass Index 27.26 (86.18 kg, 177.80 cm) iw ED Course: 10:24 Patient arrived in ED. rg4 10:36 Triage completed. iw 10:37 Arm band placed on. iw 10:42 Karen, Caren, RN is Primary Nurse. sv 10:47 Harsha Brambila MD is Attending Physician. rn 10:49 ED physician to see patient. sv 10:49 Patient has correct armband on for positive identification. Bed in low position. Call sv light in reach. Side rails up X 1. Adult w/ patient. research fellow on. Pulse ox on. NIBP on. Door closed. Head of bed elevated. 11:10 First set of blood cultures drawn by me. Inserted saline lock: 20 gauge in right sv antecubital area, using aseptic technique. Blood collected. Flushed right antecubital with 5 ml normal saline. 11:14 EKG done, by electronics tech. reviewed by Harsha Brambila MD. at1 11:20 Second set of blood cultures drawn by me. sv 11:34 X-ray(s) taken. sv 11:49 XRAY CXR (1 view) Sent. hb 12:06 XRAY CXR (1 view) In Process Unspecified. EDMS 13:45 No provider procedures requiring assistance completed. IV discontinued, intact, hb bleeding controlled, No redness/swelling at site. Pressure dressing applied. Administered Medications: 11:22 Drug: SOLU-Medrol 125 mg Route: IVP; Site: right antecubital; hb 11:49 Follow up: Response: No adverse reaction hb 11:22 Drug: Xopenex (3) 1.25 mg Route: Inhalation; hb 11:49 Follow up: Response: No adverse reaction hb 11:22 Drug: Magnesium Sulfate 1 grams Route: IVPB; Infused Over: 1 hrs; Site: right hb antecubital; 12:20 Follow up: Response: No adverse reaction; IV Status: Completed infusion; IV Intake: sv 100ml 11:22 Drug: NS 0.9% 500 ml Route: IV; Rate: bolus; Site: right antecubital; hb 11:49 Follow up: Response: No adverse reaction; IV Status: Completed infusion; IV Intake: hb 500ml Intake: 11:49 IV: 500ml; Total: 500ml. hb 12:20 IV: 100ml; Total: 600ml. sv Outcome: 13:42 Discharge ordered by . rn 13:45 Discharged to home ambulatory, with family. hb 13:45 Condition: stable 13:45 Discharge instructions given to patient, Instructed on discharge instructions, follow up and referral plans. medication usage, Demonstrated understanding of instructions, follow-up care, medications, Prescriptions given X 3. 13:50 Patient left the ED. sv Signatures: Dispatcher [employer] EDCaren Mckeon RN RN sv Williams, Irene, RN RN iw Nieto, Roman, MD MD rn Gonzales, Amanda, grounds person EKG Tat1 Idalia Carpenter RN RN hb Garcia, Wendie rg4
--- NOTE | 2019-06-06 13:43 | EDPHYS ---
Physician Documentation [facility] Name: Scott Liao Age: 63 yrs Sex: Male : 1955 Arrival Date: 06/06/2019 Time: 10:24 Bed 6 Private MD: ED Physician Harsha Brambila HPI: 06/06 13:39 This 63 yrs old Male presents to ER via Ambulatory with complaints of rn Breathing Difficulty. 13:39 The patient has shortness of breath at rest, with light activity. rn 13:39 Onset: The symptoms/episode began/occurred 3 week(s) ago. Duration: The symptoms are rn intermittent. The patient's shortness of breath is aggravated by exertion, light activity, is alleviated by nothing. Severity of symptoms: At their worst the symptoms were moderate in the emergency department the symptoms are unchanged. The patient has experienced similar episodes in the past. Reports told by pulmonology has asthma, has been having sob for 3 weeks, not on daily therapy 2/2 cost, no fever, no trauma, reports dry cough. Worse with exertion.. Historical: - Allergies: 10:37 No Known Allergies; iw - Home Meds: 10:37 None [Active]; iw - PMHx: 10:37 Gout; Hypertension; Asthma; iw - PSHx: 10:37 back surgery; eye surgery; Knee surgery; repair of femur fracture- plates in leg; iw - Immunization history:: Adult Immunizations not up to date. - Social history:: Smoking status: Patient/guardian denies using tobacco. - Ebola Screening: : Patient negative for fever greater than or equal to 101.5 degrees Fahrenheit, and additional compatible Ebola Virus Disease symptoms Patient denies exposure to infectious person Patient denies travel to an Ebola-affected area in the 21 days before illness onset No symptoms or risks identified at this time. - Family history:: not pertinent. - Hospitalizations: : No recent hospitalization is reported. ROS: 13:39 Constitutional: Negative for fever, chills, and weight loss, Eyes: Negative for injury, rn pain, redness, and discharge, ENT: Negative for injury, pain, and discharge, Neck: Negative for injury, pain, and swelling, Cardiovascular: Negative for chest pain, palpitations, and edema, Respiratory: + cough and sob, + wheezing Abdomen/GI: Negative for abdominal pain, nausea, vomiting, diarrhea, and constipation, MS/Extremity: Negative for injury and deformity, Skin: Negative for injury, rash, and discoloration, Neuro: Negative for headache, weakness, numbness, tingling, and seizure. Exam: 13:39 Constitutional: This is a well developed, well nourished patient who is awake, alert, rn and in no acute distress. Head/Face: Normocephalic, atraumatic. ENT: No stridor or swelling Neck: Trachea midline, no thyromegaly or masses palpated, and no cervical lymphadenopathy. Supple, full range of motion without nuchal rigidity, or vertebral point tenderness. No Meningismus. Cardiovascular: Regular rate and rhythm. No pulse deficits. Respiratory: + mild tachypnea with diffuse wheezing, no retractions Abdomen/GI: soft, non-tender MS/ Extremity: Pulses equal, no cyanosis. Neurovascular intact. Full, normal range of motion. Equal circumference. Neuro: Awake and alert, GCS 15, oriented to person, place, time, and situation. Cranial nerves II-XII grossly intact. Motor strength 5/5 in all extremities. Sensory grossly intact. Vital Signs: 10:37 BP 119 / 84; Pulse 83; Resp 18; Temp 98.9; Pulse Ox 98% on R/A; Weight 86.18 kg; Height iw 5 ft. 10 in. (177.80 cm); Pain 7/10; 11:23 BP 134 / 93; Pulse 73; Resp 17; Pulse Ox 99% ; hb 12:32 BP 129 / 87; Pulse 87; Resp 16; Pulse Ox 97% ; sv 13:10 BP 124 / 89; Pulse 86; Resp 15; Pulse Ox 96% ; sv 13:44 BP 120 / 83; Pulse 86; Resp 16; Pulse Ox 97% ; sv 10:37 Body Mass Index 27.26 (86.18 kg, 177.80 cm) iw MDM: 10:47 Patient medically screened. rn 13:39 Differential diagnosis: asthma, pneumonia, Pneumothorax reactive airway disease. Data rn reviewed: vital signs, nurses notes, lab test result(s), EKG, radiologic studies, plain films, and as a result, I will discharge patient. Counseling: I had a detailed discussion with the patient and/or guardian regarding: the historical points, exam findings, and any diagnostic results supporting the discharge/admit diagnosis, lab results, radiology results, the need for outpatient follow up, to return to the emergency department if symptoms worsen or persist or if there are any questions or concerns that arise at home. Response to treatment: the patient's symptoms have markedly improved after treatment, and as a result, I will discharge patient. Special discussion: I discussed with the patient/guardian in detail that at this point there is no indication for admission to the hospital. It is understood, however, that if the symptoms persist or worsen the patient needs to return immediately for re-evaluation. Based on the history and exam findings, there is no indication for further emergent testing or inpatient evaluation. I discussed with the patient/guardian the need to see the primary care provider for further evaluation of the symptoms. ED course: Pt with marked improvement, requesting to go home, neg cxr, neg trop, no ischemia on ecg, will dc home with steroids and nebs. Return precautions given and understood. Will f/u with his doctor to discuss daily therapy for his asthma.. 06/06 10:59 Order name: Blood Culture Adult (2) rn 06/06 10:59 Order name: BMP; Complete Time: 12: rn 06/06 10:59 Order name: XRAY CXR (1 view); Complete Time: 12: rn 06/06 10:59 Order name: CBC with Diff; Complete Time: 12: rn 06/06 10:59 Order name: NT PRO-BNP; Complete Time: 12: rn 06/06 10:59 Order name: Flu; Complete Time: 12: rn 06/06 10:59 Order name: EKG; Complete Time: 11: rn 06/06 10:59 Order name: Cardiac monitoring; Complete Time: : rn 06/06 10:59 Order name: EKG - Nurse/Tech; Complete Time: 11: rn 06/06 10:59 Order name: IV Saline Lock; Complete Time: : rn 06/06 10:59 Order name: Labs collected and sent; Complete Time: : rn 06/06 10:59 Order name: O2 Per Protocol; Complete Time: 11: rn 06/06 10:59 Order name: O2 Sat Monitoring; Complete Time: 11:03 rn Administered Medications: 11:22 Drug: SOLU-Medrol 125 mg Route: IVP; Site: right antecubital; hb 11:49 Follow up: Response: No adverse reaction hb 11:22 Drug: Xopenex (3) 1.25 mg Route: Inhalation; hb 11:49 Follow up: Response: No adverse reaction hb 11:22 Drug: Magnesium Sulfate 1 grams Route: IVPB; Infused Over: 1 hrs; Site: right hb antecubital; 12:20 Follow up: Response: No adverse reaction; IV Status: Completed infusion; IV Intake: sv 100ml 11:22 Drug: NS 0.9% 500 ml Route: IV; Rate: bolus; Site: right antecubital; hb 11:49 Follow up: Response: No adverse reaction; IV Status: Completed infusion; IV Intake: hb 500ml Disposition: 06/06/19 13:42 Discharged to Home. Impression: Mild persistent asthma with (acute) exacerbation. - Condition is Stable. - Discharge Instructions: Asthma, Adult, How to Use an Inhaler. - Prescriptions for Prednisone 20 mg Oral Tablet - take 3 tablet by ORAL route once daily for 5 days; 15 tablet. Albuterol Sulfate 2.5 mg /3 mL (0.083 %) Inhalation Solution for Nebulization - inhale 1 unit by NEBULIZATION route every 8 hours As needed; 1 box. Albuterol Sulfate 90 mcg/actuation - inhale 1-2 puff by INHALATION route every 4-6 hours; 1 Inhaler. - Medication Reconciliation Form, Thank You Letter, Antibiotic Education, Prescription Opioid Use form. - Follow up: Private Physician; When: As needed; Reason: Recheck today's complaints, Re-evaluation by your physician. - Problem is new. - Symptoms have improved. Signatures: Dispatcher [employer] Caren Peguero RN RN sv Williams, Irene, RN RN iw Nieto, Roman, MD MD rn Baxter, Heather, RN RN Corrections: (The following items were deleted from the chart) 13:50 13:42 06/06/2019 13:42 Discharged to Home. Impression: Mild persistent asthma with sv (acute) exacerbation. Condition is Stable. Forms are Medication Reconciliation Form, Thank You Letter, Antibiotic Education, Prescription Opioid Use. Follow up: Private Physician; When: As needed; Reason: Recheck today's complaints, Re-evaluation by your physician. Problem is new. Symptoms have improved. rn
--- NOTE | 2019-06-06 14:55 | EKG ---
Test Date: 2019-06-06 Test Time: 11:04:12 Production Tester: ALY MEASUREMENT RESULTS: Intervals: Rate: 77 SC: 164 QRSD: 110 QT: 372 QTc: 420 [place]: P: 53 SC: 164 QRS: 30 T: 32 INTERPRETIVE STATEMENTS: Sinus rhythm with occasional premature ventricular complexes Otherwise normal ECG Compared to ECG 09/14/2018 11:26:51 Ventricular premature complex(es) now present Electronically Signed On 06-06-19 14:54:38 PAIN MANAGEMENT PHYSICIAN by Junior Rendon
[2019-06-06 15:26] VITALS: TEMP 98.9
[2019-06-06 15:37] VITALS: BP 120/83; O2SAT 97
== END 2019-06-06 13:50 | disposition home or self-care (01) ==
LOC: ER 10:22
DX: J45.31 Mild persistent asthma with (acute) exacerbation (principal)
CPT/HCPCS: 96365; 93005; 87040 ×2; 85025; 80048; 36415; 83880; 87804 ×2; 71045; 96375; 99285; J3475; J7040; J2930

== ENCOUNTER 2019-06-19 21:24 | Emergency (ER) | payer OTHER ==
[2019-06-19] MEDS ORDERED: LEVALBUTEROL 1.25 MG/3 ML NEB ONE (21:48)
[2019-06-19] MEDS ORDERED: dexAMETHasone 10 MG/ML VIAL ONE (21:48)
[2019-06-19] MEDS ORDERED: HYDROCODONE/CHLORPHEN 5 ML/OSYR ONE (21:49)
[2019-06-19 22:05] LABS: Absolute Lymphocytes (CBC) 2.7 K/uL (0.7-4.9); Basophils % 0.6 % (0-1.3); Hematocrit 41.3 % (39.6-49.0); Lymphocytes % 28.6 % (15.3-44.8); MPV 8.4 fL (7.6-11.3); RBC Red Blood Cell Count 4.42 M/uL (4.33-5.43)
[2019-06-19 22:16] LABS: Potassium 3.5 mmol/L (3.5-5.1)
--- NOTE | 2019-06-20 00:32 | ER ---
Nurse's Notes [facility] Name: Scott Liao Age: 63 yrs Sex: Male : 1955 Arrival Date: 06/19/2019 Time: 21:26 Bed 4 Private MD: Guzman Lopez Diagnosis: Acute pharyngitis Presentation: 06/19 21:34 Presenting complaint: Patient states: asthma attack recently. given me breathing rv treatment and steroids. today I started coughing and I am short of breath and it is getting worse. feels like my throat is closing. 22:02 Transition of care: patient was not received from another setting of care. Onset of ea symptoms was June 19, 2019. Risk Assessment: Do you want to hurt yourself or someone else? Patient reports no desire to harm self or others. Initial Sepsis Screen: Does the patient meet any 2 criteria? HR > 90 bpm. No. Patient's initial sepsis screen is negative. Does the patient have a suspected source of infection? No. Patient's initial sepsis screen is negative. Care prior to arrival: None. 22:02 Method Of Arrival: Wheelchair ea 22:02 Acuity: JOANA 3 ea Triage Assessment: 21:43 General: Appears in no apparent distress. Behavior is calm, cooperative. Pain: Denies rv pain. Respiratory: Reports shortness of breath on exertion cough that is hacking, persistent Onset: The symptoms/episode began/occurred yesterday, the patient has mild shortness of breath. Historical: - Allergies: 21:42 No Known Allergies; rv - PMHx: 21:42 Asthma; Gout; Hypertension; rv - PSHx: 21:42 Knee surgery; eye sx; back sx; rv - Immunization history:: Adult Immunizations up to date. - Coronavirus screen:: The patient has NOT traveled to [place], [place], or [place] in the past 14 days. Proceed with normal triage process as indicated. The patient has NOT had contact with known/suspected case of Coronavirus? Proceed with normal triage procedures. - Family history:: not pertinent. - Social history:: Smoking status: Patient denies any tobacco usage or history of. - Hospitalizations: : No recent hospitalization is reported. - Ebola Screening: : No symptoms or risks identified at this time. Screenin:53 Abuse screen: Denies threats or abuse. Nutritional screening: No deficits noted. ea Tuberculosis screening: No symptoms or risk factors identified. Fall Risk IV access (20 points). Assessment: 21:59 General: Appears in no apparent distress. Behavior is calm, cooperative, appropriate ea for age. Pain: Denies pain. Neuro: Level of Consciousness is awake, alert, obeys commands, Oriented to person, place, time, situation. Cardiovascular: Patient's skin is warm and dry. Respiratory: Airway is patent Respiratory effort is even, unlabored, Respiratory pattern is regular, symmetrical. Derm: Skin is pink, warm \T\ dry. 22:21 Reassessment: Patient and/or family updated on plan of care and expected duration. Pain ea level reassessed. Patient is alert, oriented x 3, equal unlabored respirations, skin warm/dry/pink. 22:57 Reassessment: Patient and/or family updated on plan of care and expected duration. Pain ea level reassessed. Patient is alert, oriented x 3, equal unlabored respirations, skin warm/dry/pink. Pt taken to CT. 23:15 Reassessment: Patient and/or family updated on plan of care and expected duration. Pain ea level reassessed. Patient is alert, oriented x 3, equal unlabored respirations, skin warm/dry/pink. Pt returned from CT. 06/20 00:11 Reassessment: Patient and/or family updated on plan of care and expected duration. Pain ea level reassessed. Patient is alert, oriented x 3, equal unlabored respirations, skin warm/dry/pink. Awaiting on CT results. 00:57 Reassessment: Patient and/or family updated on plan of care and expected duration. Pain ea level reassessed. Patient is alert, oriented x 3, equal unlabored respirations, skin warm/dry/pink. Discharge instruction given to patient, verbalized the understanding of instruction. Pt left ED ambulatory accompanied by family. Vital Signs: 06/19 21:41 BP 151 / 96; Pulse 107; Resp 21; Temp 98.1; Pulse Ox 97% on R/A; Weight 88.45 kg; rv Height 5 ft. 10 in. (177.80 cm); Pain 0/10; 22:01 BP 115 / 81; Pulse 102; Resp 20; Pulse Ox 99% ; ea 23:33 BP 123 / 83; Pulse 99; Resp 18; Pulse Ox 100% ; ea 06/20 00:35 BP 134 / 91; Pulse 98; Resp 18; Temp 98; Pulse Ox 99% ; ea 06/19 21:41 Body Mass Index 27.98 (88.45 kg, 177.80 cm) rv ED Course: 06/19 21: Patient arrived in ED. ag5 21:26 Guzman Lopez DO is Private Physician. ag5 21:34 Harsha Brambila MD is Attending Physician. rn 21:36 Harsha Brambila MD is Attending Physician. rn 21:42 Rhiannon Olmos RN is Primary Nurse. ea 21:43 Arm band placed on Patient placed in the treatment room, Patient notified of wait time. rv 21:53 Inserted saline lock: 20 gauge in left antecubital area, using aseptic technique. Blood ea collected. per [facility] tech. 22:00 Patient has correct armband on for positive identification. Bed in low position. Call ea light in reach. Side rails up X 1. 22:02 Triage completed. ea 23:24 CT Soft Tissue Neck W/contr In Process Unspecified. EDMS 06/20 00:50 No provider procedures requiring assistance completed. IV discontinued, intact, ea bleeding controlled, No redness/swelling at site. Pressure dressing applied. Administered Medications: 06/19 21:52 Drug: Decadron - Dexamethasone 10 mg Route: IVP; Site: left antecubital; ea 22:17 Follow up: Response: No adverse reaction ea 21:52 Drug: Tussionex Pennkinetic ER 5 ml Route: PO; ea 22:17 Follow up: Response: No adverse reaction ea 21:52 Drug: Xopenex (3) 1.25 mg Route: Inhalation; ea 22:17 Follow up: Response: No adverse reaction ea Outcome: 06/20 00:31 Discharge ordered by . rn 00:58 Discharged to home ambulatory, with family. ea 00:58 Condition: stable 00:58 Discharge instructions given to patient, Instructed on discharge instructions, follow up and referral plans. medication usage, Demonstrated understanding of instructions, follow-up care, medications, Prescriptions given X 3. 00:58 Patient left the ED. ea Signatures: Dispatcher [employer] EDME Harsha Brambila MD MD rn Antunez, Elena, RN RN ea Vicente, Ronaldo, RN RN rv Gabreilla, Femi ag5
--- NOTE | 2019-06-20 00:32 | EDPHYS ---
Physician Documentation [facility] Name: Scott Liao Age: 63 yrs Sex: Male : 1955 Arrival Date: 06/19/2019 Time: 21:26 Bed 4 Private MD: Guzman Lopez ED Physician Harsha Brambila HPI: 06/19 21:41 This 63 yrs old Male presents to ER via Unassigned with complaints of rn Breathing Difficulty, Cough. 21:41 The patient has shortness of breath at rest. Onset: The symptoms/episode began/occurred rn today. Duration: The symptoms are continuous. The patient's shortness of breath is aggravated by coughing, is alleviated by nothing. Severity of symptoms: At their worst the symptoms were moderate in the emergency department the symptoms are unchanged. The patient has not experienced similar symptoms in the past. Reports cough, sore throat, feels difficulty breathing at throat level, worse with cough, no fever. Feels different from previous asthma problems. No chest pain.. Historical: - Allergies: 21:42 No Known Allergies; rv - PMHx: 21:42 Asthma; Gout; Hypertension; rv - PSHx: 21:42 Knee surgery; eye sx; back sx; rv - Immunization history:: Adult Immunizations up to date. - Coronavirus screen:: The patient has NOT traveled to [place], [place], or [place] in the past 14 days. Proceed with normal triage process as indicated. The patient has NOT had contact with known/suspected case of Coronavirus? Proceed with normal triage procedures. - Family history:: not pertinent. - Social history:: Smoking status: Patient denies any tobacco usage or history of. - Hospitalizations: : No recent hospitalization is reported. - Ebola Screening: : No symptoms or risks identified at this time. ROS: 21:41 Constitutional: Negative for fever, chills, and weight loss, Eyes: Negative for injury, rn pain, redness, and discharge, Neck: + sore throat and neck pain Cardiovascular: Negative for chest pain, palpitations, and edema, Respiratory: Negative for wheezing, and pleuritic chest pain Abdomen/GI: Negative for abdominal pain, nausea, vomiting, diarrhea, and constipation, MS/Extremity: Negative for injury and deformity, Skin: Negative for injury, rash, and discoloration, Neuro: Negative for headache, weakness, numbness, tingling, and seizure. Exam: 21:41 Constitutional: This is a well developed, well nourished patient who is awake, alert, rn and in no acute distress. Persistent cough. Head/Face: Normocephalic, atraumatic. Eyes: Pupils equal round and reactive to light, extra-ocular motions intact. Lids and lashes normal. Conjunctiva and sclera are non-icteric and not injected. Cornea within normal limits. Periorbital areas with no swelling, redness, or edema. ENT: + pharyngeal erythema without swelling Neck: Trachea midline, no thyromegaly or masses palpated, and no cervical lymphadenopathy. Supple, full range of motion without nuchal rigidity, or vertebral point tenderness. No Meningismus. Cardiovascular: Tachycardic, No pulse deficits. Respiratory: Faint exp wheezing, no stridor Abdomen/GI: soft, non-tender MS/ Extremity: Pulses equal, no cyanosis. Neurovascular intact. Full, normal range of motion. Equal circumference. Neuro: Awake and alert, GCS 15, oriented to person, place, time, and situation. Cranial nerves II-XII grossly intact. Motor strength 5/5 in all extremities. Sensory grossly intact. Normal gait. Normal cerebellar exam. Vital Signs: 21:41 BP 151 / 96; Pulse 107; Resp 21; Temp 98.1; Pulse Ox 97% on R/A; Weight 88.45 kg; rv Height 5 ft. 10 in. (177.80 cm); Pain 0/10; 22:01 BP 115 / 81; Pulse 102; Resp 20; Pulse Ox 99% ; ea 23:33 BP 123 / 83; Pulse 99; Resp 18; Pulse Ox 100% ; ea 06/20 00:35 BP 134 / 91; Pulse 98; Resp 18; Temp 98; Pulse Ox 99% ; ea 06/19 21:41 Body Mass Index 27.98 (88.45 kg, 177.80 cm) rv MDM: 06/19 21:34 Patient medically screened. rn 06/20 00:28 Differential diagnosis: asthma, Bronchitis strep, flu, sinusitis, pharyngitis. Data rn reviewed: vital signs, nurses notes, lab test result(s), radiologic studies, CT scan, and as a result, I will discharge patient. Counseling: I had a detailed discussion with the patient and/or guardian regarding: the historical points, exam findings, and any diagnostic results supporting the discharge/admit diagnosis, lab results, radiology results, the need for outpatient follow up, to return to the emergency department if symptoms worsen or persist or if there are any questions or concerns that arise at home. Response to treatment: the patient's symptoms have mildly improved after treatment, and as a result, I will discharge patient. Special discussion: I discussed with the patient/guardian in detail that at this point there is no indication for admission to the hospital. It is understood, however, that if the symptoms persist or worsen the patient needs to return immediately for re-evaluation. ED course: Pt improved, ct without signs of airway compromise or deep neck infection, cough improved, will dc home with steroids and abx for pharyngitis.. 06/19 21:41 Order name: CBC with Diff rn 06/19 21:41 Order name: Basic Metabolic Panel rn 06/19 21:41 Order name: CBC with Automated Diff; Complete Time: 23:32 EDMO 06/19 21:42 Order name: Basic Metabolic Panel; Complete Time: 23:32 EDMO 06/19 22:04 Order name: Flu; Complete Time: 23:32 jb5 06/19 22:04 Order name: Strep; Complete Time: 23:32 [facility] [place] 06/19 21:41 Order name: IV Start; Complete Time: 21:53 rn 06/19 21:41 Order name: CT Soft Tissue Neck W/contr rn 06/19 23:20 Order name: Throat Culture EDMS Administered Medications: 06/19 21:52 Drug: Decadron - Dexamethasone 10 mg Route: IVP; Site: left antecubital; ea 22:17 Follow up: Response: No adverse reaction ea 21:52 Drug: Tussionex Pennkinetic ER 5 ml Route: PO; ea 22:17 Follow up: Response: No adverse reaction ea 21:52 Drug: Xopenex (3) 1.25 mg Route: Inhalation; ea 22:17 Follow up: Response: No adverse reaction ea Disposition: 06/20/19 00:31 Discharged to Home. Impression: Acute pharyngitis. - Condition is Stable. - Discharge Instructions: Pharyngitis, Sore Throat, [id number]. - Prescriptions for Prednisone 20 mg Oral Tablet - take 3 tablet by ORAL route once daily for 5 days; 15 tablet. Zithromax Z- Ronald 250 mg Oral Tablet - take 1 tablet by ORAL route as directed for 5 days Day 1 - take two (2) tablets one time. Day 2, 3, 4 , 5 take one (1) tablet once daily.; 6 tablet. Guaifenesin AC 10- 100 mg/5 mL Oral Liquid - take 10 milliliter by ORAL route every 4 hours As needed; 240 milliliter. - Medication Reconciliation Form, Thank You Letter, Antibiotic Education, Prescription Opioid Use, Work release form, Family Work Release form. - Follow up: Private Physician; When: As needed; Reason: Recheck today's complaints, Re-evaluation by your physician. - Problem is new. - Symptoms have improved. Signatures: Dispatcher [employer] EDMS Harsha Brambila MD MD rn Antunez, Elena RN RN Martin Hoffman RN RENETTA rv Corrections: (The following items were deleted from the chart) 06/20 00:58 00:31 06/20/2019 00:31 Discharged to Home. Impression: Acute pharyngitis. Condition is ea Stable. Forms are Medication Reconciliation Form, Thank You Letter, Antibiotic Education, Prescription Opioid Use. Follow up: Private Physician; When: As needed; Reason: Recheck today's complaints, Re-evaluation by your physician. Problem is new. Symptoms have improved. rn
[2019-06-20] MEDS ORDERED: AZITHROMYCIN 250 MG TAB ONE (00:55)
[2019-06-20 01:24] VITALS: TEMP 98.1
[2019-06-20 01:27] VITALS: BP 123/83; O2SAT 100
--- NOTE | 2019-06-20 12:38 | RAD REPORT ---
EXAM DESCRIPTION: CT - Soft Tissue Neck W/Contr - 06/20/2019 5:21 am CLINICAL HISTORY: 63-year-old male with asthma attack, coughing, shortness of breath, neck pain, dys pnea. TECHNIQUE: CT imaging of the soft tissues of the neck were performed following the administration of intravenous contrast..The CT study is performed according to ALARA (as low as reasonably achievable) or ALARA/IMAGE GENTLY, with automatic adjustment of mA and/or kV according to patient size. Performed on: 06/19/2019 11:07 PM COMPARISON: None. FINDINGS: The visualized portions of the brain and orbits are normal. The oral cavity, oropharynx and nasopharynx are normal. Some portions of the oral cavity and orophary nx are obscured by streak artifact related to the patient's dental hardware. The parapharyngeal fa t planes are preserved. The hypopharynx is unremarkable. The parotid and submandibular glands are grossly within normal limits. No intrinsic mass lesions are seen. . The carotid sheaths are normal bilaterally. The epiglottis and aryepiglottic folds are normal. The vallecula and pyriform sinuses are grossly nor mal. The preepiglottic fat is preserved. The thyroid, cricoid and arytenoid cartilages are normal. The region of the false and true vocal cords is normal as is the anterior commissure. There is moderate mucosal thickening of the maxillary and ethmoid sinuses and frontal sinuses with tr gia mucosal thickening of the sphenoid sinuses. The mastoid air cells and middle ear cavities are melyssa ar. No definite pathologically enlarged lymph nodes are identified The thyroid gland is normal in size and configuration. The thoracic inlet is normal. The superior mediastinum and lung apices are normal. No acute osseous abnormalities are identified. There is degenerative disc disease at C5-C6. No focal soft tissue abnormalities are seen. IMPRESSION: 1. No acute abnormality involving the soft tissues of the neck. 2. Moderate mucosal thickening of the maxillary, ethmoid and frontal sinuses with trace mucosal thick ening of the sphenoid sinuses. 3. Degenerative disc disease at C5-C6. 4. No acute abnormalities involving the airway. Electronically signed by: Linda Starr DO 06/19/2019 11:39 PM LICENSING WORKER Due to temporary technical issues with the PACS/Fluency reporting system, reports are being signed by the in house radiologist as a courtesy to ensure prompt reporting. The interpreting radiologist is f ully responsible for the content of the report.
== END 2019-06-20 00:58 | disposition home or self-care (01) ==
LOC: ER 21:24
DX: J02.9 Acute pharyngitis, unspecified (principal); R05 Cough; I10 Essential (primary) hypertension
CPT/HCPCS: 87070; 85025; 80048; 36415; 87081; 87804 ×2; 70491; 96374; 99284; Q9967; J1100

== ENCOUNTER 2019-07-15 21:13 | Observation (INO) | payer OTHER ==
--- NOTE | 2019-07-15 21:48 | ER ---
Nurse's Notes [facility] Name: Scott Liao Age: 63 yrs Sex: Male : 1955 Arrival Date: 07/15/2019 Time: 21:15 Bed 15 Private MD: Diagnosis: Asthma;Dyspnea;Vomiting;Hypokalemia Presentation: 07/15 21:16 Presenting complaint: Patient states: cough and shortness of breath for the past 3 aj1 days. States that he was in here 3 weeks ago for the same thing and they gave him prednisone which helped. Denies fever. Transition of care: patient was not received from another setting of care. Onset of symptoms was June 2019. Risk Assessment: Do you want to hurt yourself or someone else? Patient reports no desire to harm self or others. Initial Sepsis Screen: Does the patient meet any 2 criteria? HR > 90 bpm. No. Patient's initial sepsis screen is negative. Does the patient have a suspected source of infection? Yes: Productive cough/pneumonia. Care prior to arrival: None. 21:16 Method Of Arrival: Ambulatory aj1 21:16 Acuity: JOANA 3 aj1 Triage Assessment: 21:17 General: Appears in no apparent distress. uncomfortable, Behavior is calm, cooperative, aj1 appropriate for age. Pain: Complains of pain in chest, left aspect of posterior pharynx and right aspect of posterior pharynx. Neuro: Level of Consciousness is awake, alert, obeys commands. Cardiovascular: Patient's skin is warm and dry. Respiratory: Reports shortness of breath. Respiratory: Airway is patent Respiratory effort is even, unlabored, Respiratory pattern is regular, symmetrical, tachypnea the patient has moderate shortness of breath. 21:30 Respiratory: Onset: The symptoms/episode began/occurred gradually. rr5 Historical: - Allergies: 21:17 No Known Allergies; aj1 - Home Meds: 21:17 blood pressure medicine [Active]; allopurinol 300 mg Oral tab 1 tab as needed for Gouty aj1 Arthritis [Active]; colchicine 0.6 mg Oral cap 1 cap as needed [Active]; - PMHx: 21:17 Asthma; Gout; Hypertension; aj1 - Immunization history:: Flu vaccine is not up to date. - Coronavirus screen:: The patient has NOT traveled to [place] in the past 14 days. - Social history:: Smoking status: Patient denies any tobacco usage or history of. - Family history:: not pertinent. - Ebola Screening: : Patient denies travel to an Ebola-affected area in the 21 days before illness onset. Screenin:20 Abuse screen: Denies threats or abuse. Denies injuries from another. Nutritional rr5 screening: No deficits noted. Tuberculosis screening: No symptoms or risk factors identified. Fall Risk IV access (20 points). Total Suarez Fall Scale indicates No Risk (0-24 pts). Assessment: 21:30 General: Appears in no apparent distress. uncomfortable, Behavior is calm, cooperative, rr5 appropriate for age. 21:30 Pain: Complains of pain in chest Pain does not radiate. Pain currently is 5 out of 10 rr5 on a pain scale. Quality of pain is described as aching, Pain began gradually, 2-3 days ago. Is intermittent, Aggravated by when coughing. Neuro: Level of Consciousness is awake, alert, obeys commands, Oriented to person, place, time, situation, Appropriate for age. Cardiovascular: Capillary refill < 3 seconds Patient's skin is warm and dry. Rhythm is regular. Respiratory: Reports shortness of breath cough that is Airway is patent Trachea midline Respiratory effort is even, unlabored, Respiratory pattern is symmetrical, tachypnea Breath sounds with wheezes. GI: Reports nausea, vomiting. : No signs and/or symptoms were reported regarding the genitourinary system. EENT: No signs and/or symptoms were reported regarding the EENT system. Derm: Skin is intact, is healthy with good turgor, Skin temperature is warm. Musculoskeletal: Circulation, motion, and sensation intact. Capillary refill < 3 seconds. 22:45 Reassessment: Patient appears in no apparent distress at this time. Patient is alert, rr5 oriented x 3, equal unlabored respirations, skin warm/dry/pink. i feel fine now its just whenever I cough that's the time I am having pain. Patient states feeling better. Patient states symptoms have improved. 23:50 Reassessment: Patient appears in no apparent distress at this time. No changes from rr5 previously documented assessment. Patient is alert, oriented x 3, equal unlabored respirations, skin warm/dry/pink. awaiting for room assignment, for admission. 02/22 00:50 Reassessment: Patient appears in no apparent distress at this time. Patient is alert, rr5 oriented x 3, equal unlabored respirations, skin warm/dry/pink. breathing spontaneously, no complaints made. IV cannula intact with ongoing drip of potassium infusing well. for transfer to 4 th floor. Vital Signs: 07/15 21:17 BP 124 / 81; Pulse 106; Resp 20; Temp 97.9; Pulse Ox 98% on R/A; Weight 90.72 kg (R); aj1 Height 5 ft. 10 in. (177.80 cm) (R); Pain 7/10; 21:30 BP 119 / 70; Pulse 90; Resp 24; Pulse Ox 98% on R/A; rr5 22:48 BP 123 / 80; Pulse 100; Resp 19; Pulse Ox 96% ; rr5 23:20 BP 119 / 75; Pulse 80; Resp 19; Temp 98.1; Pulse Ox 96% ; Pain 0/10; rr5 07/16 00:15 BP 128 / 88; Pulse 91; Resp 20; Temp 98; Pulse Ox 95% on R/A; rr5 07/15 21:17 Body Mass Index 28.70 (90.72 kg, 177.80 cm) aj ED Course: 07/15 21:15 Patient arrived in ED. jg7 21:17 Triage completed. aj1 21:17 Arm band placed on Patient placed in an exam room. aj1 21:20 Misael Murillo, RN is Primary Nurse. rr5 21:20 Patient has correct armband on for positive identification. Placed in gown. Bed in low rr5 position. Call light in reach. Side rails up X2. manager monitoring on. Pulse ox on. NIBP on. 21:25 Steffen Escobar MD is Attending Physician. rick 21:47 Adria López is Hospitalizing Provider. rick 22:04 Initial lab(s) drawn, by me, sent to lab. First set of blood cultures drawn EKG done, lt1 by ED staff, Flu and/or RSV swab sent to lab. 22:07 Inserted saline lock: 20 gauge in right antecubital area, using aseptic technique. lt1 22:08 Influenza Screen (a \T\ B) Sent. lt1 22:26 Second set of blood cultures drawn by me. lt1 22:28 Blood Culture Adult (2) Sent. lt1 07/16 01:15 No provider procedures requiring assistance completed. Patient admitted, IV remains in rr5 place. intact, No redness/swelling at site. Administered Medications: Discontinued: NS 0.9% 1000 ml IV at 125 ml/hr continuous 07/15 22:10 Drug: Albuterol - atroVENT (3:1) (2.5 mg - 0.5 mg) 3 ml Route: Nebulizer; rr5 23:00 Follow up: Response: No adverse reaction rr5 22:15 Drug: NS 0.9% 500 ml Route: IV; Rate: bolus; Site: right antecubital; rr5 22:46 Follow up: Response: No adverse reaction; IV Status: Completed infusion; IV Intake: rr5 500ml 22:15 Drug: Decadron - Dexamethasone 10 mg Route: IVP; Site: right antecubital; rr5 23:15 Follow up: Response: No adverse reaction rr5 22:17 Drug: Zofran 4 mg Route: IVP; Site: right antecubital; rr5 23:00 Follow up: Response: No adverse reaction; Marked relief of symptoms rr5 22:20 Drug: SOLU-Medrol 125 mg Route: IVP; Site: right antecubital; rr5 23:20 Follow up: Response: No adverse reaction rr5 22:44 Dru mg of (levofloxacin 500 mg, NS 0.9% 100 ml) Volume: 100 ml; Route: IVPB; rr5 Infused Over: 60 mins; Site: right antecubital; 23:40 Follow up: Response: No adverse reaction; IV Status: Completed infusion; IV Intake: rr5 100ml 22:47 Drug: NS 0.9% 1000 ml Route: IV; Rate: 125 ml/hr; Site: right antecubital; rr5 23:30 Follow up: Response: No adverse reaction; IV Status: Order to discontinue infusion; IV rr5 Intake: 60ml 07/16 00:15 Drug: Potassium Chloride 20 mEq Route: IV; Rate: per protocol; Site: right antecubital; rr5 00:55 Follow up: Response: No adverse reaction; IV Status: Infusion continued upon admission; rr5 IV Intake: 25ml 00:16 Drug: NS 0.9% with KCl 20 mEq/L 1000 ml Route: IV; Rate: 125 ml/hr; Site: right rr5 antecubital; 00:55 Follow up: IV Status: Infusion continued upon admission rr5 Intake: 07/15 22:46 IV: 500ml; Total: 500ml. rr5 23:30 IV: 60ml; Total: 560ml. rr5 23:40 IV: 100ml; Total: 660ml. rr5 07/16 00:55 IV: 25ml; Total: 685ml. rr5 Output: 00:00 Urine: 750ml (Voided); Total: 750ml. rr5 Outcome: 07/15 21:48 Decision to Hospitalize by Provider. rick 07/16 00:55 Admitted to Tele accompanied by tech, via wheelchair, room 412, with chart, Report rr5 called to carde Condition: stable Instructed on the need for admit. 01:29 Patient left the ED. rr5 Signatures: Sierra Ortiz, RN RN aj1 Steffen Escobar MD MD cha Roque, Raymond, RN RN rr5 Kim Villar 1 Ginny Huntg7
--- NOTE | 2019-07-15 21:49 | EDPHYS ---
Physician Documentation [facility] Name: Scott Liao Age: 63 yrs Sex: Male : 1955 Arrival Date: 07/15/2019 Time: 21:15 Bed 15 Private MD: ED Physician Steffen Escobar HPI: 07/15 21:44 This 63 yrs old Male presents to ER via Ambulatory with complaints of rick Breathing Difficulty, Vomiting, Cough. 21:44 The patient has shortness of breath at rest, with light activity. Onset: The rick symptoms/episode began/occurred 4 day(s) ago. Duration: The symptoms are continuous, and are steadily getting worse. The patient's shortness of breath is aggravated by coughing, supine position, talking, walking. Associated signs and symptoms: Pertinent positives: non-productive cough. Severity of symptoms: At their worst the symptoms were mild moderate in the emergency department the symptoms are unchanged. The patient has not experienced similar symptoms in the past. Historical: - Allergies: 21:17 No Known Allergies; aj1 - Home Meds: 21:17 blood pressure medicine [Active]; allopurinol 300 mg Oral tab 1 tab as needed for Gouty aj1 Arthritis [Active]; colchicine 0.6 mg Oral cap 1 cap as needed [Active]; - PMHx: 21:17 Asthma; Gout; Hypertension; aj1 - Immunization history:: Flu vaccine is not up to date. - Coronavirus screen:: The patient has NOT traveled to [place] in the past 14 days. - Social history:: Smoking status: Patient denies any tobacco usage or history of. - Family history:: not pertinent. - Ebola Screening: : Patient denies travel to an Ebola-affected area in the 21 days before illness onset. ROS: 21:44 Constitutional: Negative for fever, chills, and weight loss, Eyes: Negative for injury, rick pain, redness, and discharge, ENT: Negative for injury, pain, and discharge, Neck: Negative for injury, pain, and swelling, Cardiovascular: Negative for chest pain, palpitations, and edema, Abdomen/GI: Negative for abdominal pain, nausea, vomiting, diarrhea, and constipation, Back: Negative for injury and pain, : Negative for injury, bleeding, discharge, and swelling, MS/Extremity: Negative for injury and deformity, Skin: Negative for injury, rash, and discoloration, Neuro: Negative for headache, weakness, numbness, tingling, and seizure, Psych: Negative for depression, anxiety, suicide ideation, homicidal ideation, and hallucinations, Allergy/Immunology: Negative for hives, rash, and allergies, Endocrine: Negative for neck swelling, polydipsia, polyuria, polyphagia, and marked weight changes, Hematologic/Lymphatic: Negative for swollen nodes, abnormal bleeding, and unusual bruising. 21:44 Respiratory: Positive for cough, shortness of breath, wheezing, inspiratory, expiratory. Exam: 21:44 Constitutional: This is a well developed, well nourished patient who is awake, alert, rick and in no acute distress. Head/Face: Normocephalic, atraumatic. Eyes: Pupils equal round and reactive to light, extra-ocular motions intact. Lids and lashes normal. Conjunctiva and sclera are non-icteric and not injected. Cornea within normal limits. Periorbital areas with no swelling, redness, or edema. ENT: Nares patent. No nasal discharge, no septal abnormalities noted. Tympanic membranes are normal and external auditory canals are clear. Oropharynx with no redness, swelling, or masses, exudates, or evidence of obstruction, uvula midline. Mucous membranes moist. Neck: Trachea midline, no thyromegaly or masses palpated, and no cervical lymphadenopathy. Supple, full range of motion without nuchal rigidity, or vertebral point tenderness. No Meningismus. Chest/axilla: Normal chest wall appearance and motion. Nontender with no deformity. No lesions are appreciated. Abdomen/GI: Soft, non-tender, with normal bowel sounds. No distension or tympany. No guarding or rebound. No evidence of tenderness throughout. Back: No spinal tenderness. No costovertebral tenderness. Full range of motion. Male : Normal genitalia with no discharge or lesions. Skin: Warm, dry with normal turgor. Normal color with no rashes, no lesions, and no evidence of cellulitis. MS/ Extremity: Pulses equal, no cyanosis. Neurovascular intact. Full, normal range of motion. Neuro: Awake and alert, GCS 15, oriented to person, place, time, and situation. Cranial nerves II-XII grossly intact. Motor strength 5/5 in all extremities. Sensory grossly intact. Cerebellar exam normal. Normal gait. Psych: Awake, alert, with orientation to person, place and time. Behavior, mood, and affect are within normal limits. 21:44 Cardiovascular: Rate: tachycardic, Rhythm: regular, Pulses: Pulses are 4+ in bilateral radial, brachial, femoral, popliteal, posterior tibial and and dorsalis pedis arteries.. Heart sounds: normal, Edema: is not appreciated, JVD: is not appreciated. 21:48 Musculoskeletal/extremity: Exam is negative for Extremities: all appear grossly normal, rick with no appreciated pain with palpation, DVT Exam: No signs of deep vein thrombosis. no pain, no swelling, no tenderness, negative Homans' sign noted on exam, no appreciated bluish discoloration, no erythema, no increased warmth. Vital Signs: 21:17 BP 124 / 81; Pulse 106; Resp 20; Temp 97.9; Pulse Ox 98% on R/A; Weight 90.72 kg (R); aj1 Height 5 ft. 10 in. (177.80 cm) (R); Pain 7/10; 21:30 BP 119 / 70; Pulse 90; Resp 24; Pulse Ox 98% on R/A; rr5 22:48 BP 123 / 80; Pulse 100; Resp 19; Pulse Ox 96% ; rr5 23:20 BP 119 / 75; Pulse 80; Resp 19; Temp 98.1; Pulse Ox 96% ; Pain 0/10; rr5 07/16 00:15 BP 128 / 88; Pulse 91; Resp 20; Temp 98; Pulse Ox 95% on R/A; rr5 07/15 21:17 Body Mass Index 28.70 (90.72 kg, 177.80 cm) aj MDM: 07/15 21:25 Patient medically screened. [facility] 21:46 Data reviewed: vital signs, nurses notes, lab test result(s), EKG, radiologic studies, [facility] plain films. 07/15 21:44 Order name: Basic Metabolic Panel [facility] 07/15 21:44 Order name: CBC with Diff [facility] 07/15 21:44 Order name: LFT's [facility] 07/15 21:44 Order name: Magnesium [facility] 07/15 21:44 Order name: NT PRO-BNP [facility] 07/15 21:44 Order name: PT-INR [facility] 07/15 21:44 Order name: Troponin (emerg Dept Use Only) [facility] 07/15 21:44 Order name: Blood Culture Adult (2) [facility] 07/15 21:44 Order name: Influenza Screen (a \T\ B) [facility] 07/15 22:35 Order name: CBC with Automated Diff [facility] 07/15 22:37 Order name: Protime (+INR); Complete Time: 22:40 [facility] 07/15 22:42 Order name: Influenza Screen (A ; Complete Time: 22:44 [facility] 07/15 22:49 Order name: Basic Metabolic Panel; Complete Time: 22:49 [facility] 07/15 22:49 Order name: Liver (Hepatic) Function; Complete Time: 22:49 [facility] 07/15 21:44 Order name: XRAY Chest (1 view) [facility] 07/15 21:44 Order name: EKG; Complete Time: 21:45 [facility] 07/15 22:49 Order name: Troponin (Emerg Dept Use Only); Complete Time: 22:49 [facility] 07/15 22:49 Order name: NT PRO-BNP; Complete Time: 22:49 [facility] 07/15 22:49 Order name: Magnesium; Complete Time: 22:49 [facility] 07/15 23:14 Order name: Manual Differential [facility] 07/16 00:27 Order name: Urine Dipstick--Ancillary (enter results) [facility] 07/15 21:44 Order name: Cardiac monitoring; Complete Time: 21:47 [facility] 07/15 21:44 Order name: EKG - Nurse/Tech; Complete Time: 21:47 [facility] 07/15 21:44 Order name: IV Saline Lock; Complete Time: 22:08 [facility] 07/15 21:44 Order name: Labs collected and sent; Complete Time: 22:08 [facility] 07/15 21:44 Order name: O2 Per Protocol; Complete Time: 22:08 [facility] 07/15 21:44 Order name: O2 Sat Monitoring; Complete Time: 22:08 [facility] 07/15 21:44 Order name: Urine Dipstick-Ancillary (obtain specimen); Complete Time: 00:27 [facility] Administered Medications: Discontinued: NS 0.9% 1000 ml IV at 125 ml/hr continuous 22:10 Drug: Albuterol - atroVENT (3:1) (2.5 mg - 0.5 mg) 3 ml Route: Nebulizer; rr5 23:00 Follow up: Response: No adverse reaction rr5 22:15 Drug: NS 0.9% 500 ml Route: IV; Rate: bolus; Site: right antecubital; rr5 22:46 Follow up: Response: No adverse reaction; IV Status: Completed infusion; IV Intake: rr5 500ml 22:15 Drug: Decadron - Dexamethasone 10 mg Route: IVP; Site: right antecubital; rr5 23:15 Follow up: Response: No adverse reaction rr5 22:17 Drug: Zofran 4 mg Route: IVP; Site: right antecubital; rr5 23:00 Follow up: Response: No adverse reaction; Marked relief of symptoms rr5 22:20 Drug: SOLU-Medrol 125 mg Route: IVP; Site: right antecubital; rr5 23:20 Follow up: Response: No adverse reaction rr5 22:44 Dru mg of (levofloxacin 500 mg, NS 0.9% 100 ml) Volume: 100 ml; Route: IVPB; rr5 Infused Over: 60 mins; Site: right antecubital; 23:40 Follow up: Response: No adverse reaction; IV Status: Completed infusion; IV Intake: rr5 100ml 22:47 Drug: NS 0.9% 1000 ml Route: IV; Rate: 125 ml/hr; Site: right antecubital; rr5 23:30 Follow up: Response: No adverse reaction; IV Status: Order to discontinue infusion; IV rr5 Intake: 60ml 07/16 00:15 Drug: Potassium Chloride 20 mEq Route: IV; Rate: per protocol; Site: right antecubital; rr5 00:55 Follow up: Response: No adverse reaction; IV Status: Infusion continued upon admission; rr5 IV Intake: 25ml 00:16 Drug: NS 0.9% with KCl 20 mEq/L 1000 ml Route: IV; Rate: 125 ml/hr; Site: right rr5 antecubital; 00:55 Follow up: IV Status: Infusion continued upon admission rr5 Disposition: 07/15/19 21:48 Hospitalization ordered by Adria López for Inpatient Admission. Preliminary diagnosis are Asthma, Dyspnea, Vomiting, Hypokalemia. - Bed requested for Telemetry/MedSurg (Inpatient). - Status is Inpatient Admission. rr5 - Condition is Fair. - Problem is new. - Symptoms have improved. Signatures: Dispatcher [employer] EDSierra Campos RN RN Steffen Real MD MD cha Garcia, Cindy, RENETTA RN Misael Murillo RN RN rr5 Corrections: (The following items were deleted from the chart) 07/15 22:51 21:48 Hospitalization Ordered by Adria López for Inpatient Admission. Preliminary [facility] diagnosis is Asthma; Dyspnea. Bed requested for Telemetry/MedSurg (Inpatient). Status is Inpatient Admission. Condition is Fair. Problem is new. Symptoms have improved. [facility] 23:58 22:51 07/15/2019 21:48 Hospitalization Ordered by Adria López for Inpatient cg Admission. Preliminary diagnosis is Asthma; Dyspnea; Vomiting; Hypokalemia. Bed requested for Telemetry/MedSurg (Inpatient). Status is Inpatient Admission. Condition is Fair. Problem is new. Symptoms have improved. [facility] 07/16 01:29 07/15 23:58 07/15/2019 21:48 Hospitalization Ordered by Adria López for Inpatient rr5 Admission. Preliminary diagnosis is Asthma; Dyspnea; Vomiting; Hypokalemia. Bed requested for Telemetry/MedSurg (Inpatient). Status is Inpatient Admission. Condition is Fair. Problem is new. Symptoms have improved.
[2019-07-15] MEDS ORDERED: METHYLPREDNISOLONE 125 MG INJ ONE (22:05)
[2019-07-15] MEDS ORDERED: ONDANSETRON 4 MG/2 ML VIAL ONE (22:05)
[2019-07-15] MEDS ORDERED: dexAMETHasone 4 MG/ML VIAL ONE (22:05)
[2019-07-15] MEDS ORDERED: ALBUTEROL 2.5 MG/3 ML NEB SOL ONE (22:05)
[2019-07-15] MEDS ORDERED: IPRATROPIUM BROM 0.5MG/2.5ML ONE (22:05)
[2019-07-15] MEDS ORDERED: NA CHLORIDE 0.9% 1,000 ML ONE (22:06)
[2019-07-15] MEDS ORDERED: Levofloxacin500mg IV 500 MG/100 ML BAG IV ONE (22:06)
[2019-07-15 22:32] LABS: Absolute Lymphocytes (CBC) 3.2 K/uL (0.7-4.9); Basophils % 1.4 % (0-1.3); Hematocrit 43.1 % (39.6-49.0); Lymphocytes % 37.1 % (15.3-44.8); MPV 8.8 fL (7.6-11.3); RBC Red Blood Cell Count 4.68 M/uL (4.33-5.43)
[2019-07-15 22:33] LABS: Protime INR 0.93
[2019-07-15 22:48] LABS: ALT/SGPT 38 U/L (12-78); AST/SGOT 20 U/L (15-37); Albumin 3.8 g/dL (3.4-5.0); Alkaline Phosphatase 79 U/L (45-117); BUN Blood Urea Nitrogen 9 mg/dL (7-18); Bicarbonate 23 mmol/L (21-32); Bilirubin Direct < 0.1 mg/dL (0-0.2); Bilirubin Total 0.4 mg/dL (0.2-1.0); Glucose Level 109 mg/dL (74-106); Magnesium 2.4 mg/dL (1.8-2.4); NT PRO-BNP 47 pg/mL (<125); Potassium 3.3 mmol/L (3.5-5.1); Protein, Total 7.6 g/dL (6.4-8.2); Sodium Level 142 mmol/L (136-145); Troponin (Emerg Dept Use Only) < 0.02 ng/mL (0.0-0.045)
[2019-07-15 23:14] LABS: Blood Morphology Comment NOT SEEN (NOT SEEN); Platelet Estimate ADEQ
--- NOTE | 2019-07-15 23:47 | P.HP ---
Certification for Inpatient Patient admitted to: Observation With expected LOS: <2 Midnights Practitioner: I am a practitioner with admitting privileges, knowledge of patient current condition, hospital course, and medical plan of care. Services: Services provided to patient in accordance with Admission requirements found in Title 42 Section 412.3 of the Code of Federal Regulations Patient History Date of Service: 07/15/19 Reason for admission: Shortness of breath and wheezing History of Present Illness: 63-year-old gentleman with a history of chronic gout and asthma presents to the ED with a complaint of shortness of breath and wheeze for about 4 days. He stated his symptoms were preceded by nasal congestion, nonproductive cough and runny nose. Patient denies any fever. He stated he uses nebulizers and inhalers at home without significant improvement. His main concern during my interaction with him in the ED was blocked nostrils from nasal congestion and difficulty breathing because of that. Chest x-ray done in the ED shows no acute disease. Patient was given some breathing treatment in the ED with partial improvement in his symptoms. Patient is hospitalized for further management. Allergies No Known Allergies Allergy (Verified 07/16/19 01:38) Home Medications: Allopurinol 300 mg PO DAILY 12/27/17 Atorvastatin Calcium [Lipitor*] 20 mg PO BEDTIME 12/27/17 Probenecid/Colchicine [Probenecid-Colchicine Tablet] 1 tab PO DAILY 12/27/17 Albuterol Sulfate [Albuterol Sulfate Hfa] 2 puff IN BID PRN 07/16/19 - Past Medical/Surgical History Diabetic: No -: HTN -: Gout -: eye sx -: back sx -: knee sx -: repair of femur fx -: plates in leg - Family History Mother -: Heart disease - Social History Smoking Status: Never smoker Alcohol use: No CD- Drugs: No Caffeine use: Yes Review of Systems Other: Except as documented, all other systems reviewed and negative. Physical Examination - Physical Exam General: Alert, In no apparent distress, Oriented x3 HEENT: Normocephalic, PERRLA, Mucous membr. moist/pink, Sclerae nonicteric Neck: Supple, JVD not distended, No Thyromegaly Respiratory: Clear to auscultation bilaterally, Normal air movement Cardiovascular: No edema, Regular rate/rhythm, Normal S1 S2, No murmurs Capillary refill: <2 Seconds Gastrointestinal: Normal bowel sounds, Soft and benign, Non-distended, No tenderness Musculoskeletal: No swelling, No erythema Integumentary: No rashes, No erythema Neurological: Normal speech, Normal strength at 5/5 x4 extr, Cranial nerves 3- 12 intact - Studies Laboratory Data (last 24 hrs) 07/15/19 22:04: PT 11.0, INR 0.93 07/15/19 22:04: WBC 8.8, Hgb 14.4, Hct 43.1, Plt Count 240 07/15/19 22:04: Sodium 142, Potassium 3.3 L, BUN 9, Creatinine 0.87, Glucose 109 H, Magnesium 2.4, Total Bilirubin 0.4, AST 20, ALT 38, Alkaline Phosphatase 79 Microbiology Data (last 24 hrs): 07/15/19 22:04 Nasopharnyx Influenza Type A Antigen Screen - Final 07/15/19 22:04 Nasopharnyx Influenza Type B Antigen Screen - Final Assessment and Plan - Problems (Diagnosis) (1) Acute asthma exacerbation Current Visit: Yes Status: Acute (2) Upper respiratory infection Current Visit: Yes Status: Acute (3) Gout Current Visit: Yes Status: Acute - Plan Place under observation Schedule DuoNeb, albuterol p.r.n. Start oral cetirizine Saline nasal spray p.r.n. Start Flonase b.i.d. IV Solu-Medrol. Validate, reconciled and continue home medications. - Advance Directives Does patient have a Living Will: No Does patient have a Durable POA for Healthcare: No
[2019-07-15] MEDS ORDERED: NS KCL 20MEQ 1,000 ML IV ONE (23:53)
[2019-07-15] MEDS ORDERED: KCL 20 MEQ/100 mL IVPB 20 MEQ/100 ML BAG IV ONE (23:53)
[2019-07-16 01:30] LABS: Urine Blood NEGATIVE (NEG); Urine Glucose NEGATIVE (NEG); Urine Protein NEGATIVE (NEG)
[2019-07-16 01:43] VITALS: BMI 29.0
[2019-07-16] MEDS: ALBUTEROL 2.5 MG/3 ML NEB SOL NEB SCH ×2 (02:00→08:50)
[2019-07-16] MEDS: IPRATROPIUM BROM 0.5MG/2.5ML NEB SCH ×2 (02:00→08:50)
[2019-07-16 03:21] LABS: Urine Appearance CLEAR; Urine Bilirubin NEGATIVE (NEG); Urine Blood NEGATIVE (NEG); Urine Color YELLOW; Urine Glucose NEGATIVE (NEG); Urine Protein NEGATIVE (NEG); Urine Urobilinogen 0.2 mg/dL (0.2-1.0)
[2019-07-16 03:30] LABS: Urine Microscopic Reflex NO UMIC
[2019-07-16 05:39] LABS: Absolute Lymphocytes (CBC) 0.8 K/uL (0.7-4.9); Basophils % 0.9 % (0-1.3); Hematocrit 39.5 % (39.6-49.0); Lymphocytes % 15.2 % (15.3-44.8); MPV 9.2 fL (7.6-11.3); RBC Red Blood Cell Count 4.26 M/uL (4.33-5.43)
[2019-07-16 05:54] LABS: Magnesium 2.1 mg/dL (1.8-2.4); Phosphorus 2.6 mg/dL (2.5-4.9); Potassium 4.2 mmol/L (3.5-5.1)
--- NOTE | 2019-07-16 08:15 | RAD REPORT ---
EXAM DESCRIPTION: RAD - Chest Single View - 07/15/2019 10:38 pm CLINICAL HISTORY: Cough;COPD;Dyspnea COMPARISON: Chest Single View dated 06/06/2019 TECHNIQUE: AP portable chest image was obtained 07/15/2019 10:38 pm . FINDINGS: Lungs are clear. Heart and vasculature are normal. No measurable pleural effusion and no p neumothorax. No acute bony abnormality seen. No acute aortic findings suspected. IMPRESSION: No acute cardiopulmonary process.
[2019-07-16] MEDS ORDERED: FLUTICASONE 50MCG NASAL SPRAY NAS SCH (09:00)
[2019-07-16] MEDS ORDERED: METHYLPREDNISOLONE 40 MG INJ IV SCH (09:00)
[2019-07-16] MEDS ORDERED: ENOXAPARIN 40 MG/0.4 ML SQ SCH (09:00)
[2019-07-16] MEDS ORDERED: INFLUENZA VACCINE (for 3y+) 0.5 ML DOSE IMVAC ONE (11:00)
[2019-07-16 12:54] VITALS: BP 136/79; TEMP 99.6
[2019-07-16 13:34] VITALS: O2SAT 93
[2019-07-16] MEDS ORDERED: ATORVASTATIN 20 MG TAB PO SCH (21:00)
[2019-07-16] MEDS ORDERED: CETIRIZINE HCL 5 MG TABLET PO SCH (21:00)
--- NOTE | 2019-07-16 21:41 | DS ---
Date of Discharge: 07/16/2019 Discharge Diagnoses: 1.Acute asthma exacerbation, mild, persistent. 2.Acute upper respiratory infection. 3.Gout. 4.Essential hypertension. Hospital Course: Patient is a 63-year-old male with history of hypertension, gout, asthma, comes in with symptoms of shortness of breath and wheezing. Patient has been to the ER 3 times this month and admitted for asthma exacerbation. Patient was started on nebulizers, IV steroids, allergy medicines . He did complain of nasal stuffiness. He was started on Flonase as well as Zyrtec. Patient showed improvement. He did not require any supplemental oxygen. He was afebrile. He was doing 97% on stefan m air. He was ambulated and did well, did not have any desaturation. He did have a mildly low level of potassium at 3.3, which was replaced. His influenza screen was negative. Patient was doing well . He was discharged home in a stable condition. Activity: As tolerated. No strenuous activity. Medications: As per medication reconciliation list. Followup: Follow up with primary care physician in 2-3 days. Follow up with tree doctor, Dr. Kylie deal in 2 weeks. Return to ER for worsening condition. Diet: Heart healthy. Physical Examination: General: Awake, alert, oriented x3, not in any acute distress. CV: S1-S2. Respiratory: Moving air well bilaterally. No significant wheezing heard. No tachypnea. No use of accessory muscles. Gastrointestinal: Abdomen is soft, nontender, nondistended. Positive bowel sounds. Extremities: No clubbing, cyanosis, or edema. Neurologic: Nonfocal. SA/MODL Voice ID: [id number] Report ID: [id number]
[2019-07-17] MEDS ORDERED: PROBENECID PO SCH (09:00)
[2019-07-17] MEDS ORDERED: allopurinoL 300 MG TAB PO SCH (09:00)
[2019-07-17] MEDS ORDERED: COLCHICINE PO SCH (09:00)
--- NOTE | 2019-07-18 08:56 | EKG ---
Test Date: 2019-07-15 Test Time: 21:41:24 Button Facing Machine Operator: NAMANT MEASUREMENT RESULTS: Intervals: Rate: 96 IL: 158 QRSD: 106 QT: 348 QTc: 439 [place]: P: 59 IL: 158 QRS: 13 T: 32 INTERPRETIVE STATEMENTS: Normal sinus rhythm Incomplete right bundle branch block Borderline ECG Compared to ECG 06/06/2019 11:04:12 Incomplete right bundle-branch block now present Ventricular premature complex(es) no longer present Electronically Signed On 07-18-19 08:55:35 COMPUTER AIDED DESIGN DESIGNER by Junior Rendon
== END 2019-07-16 13:06 | disposition home or self-care (01) ==
LOC: ER 21:13 → ERHOLD 23:49 → 4TH 07-16 00:55
PROVIDERS: ADMIT Internal Medicine; ATTEND Family Medicine
DX: J45.31 Mild persistent asthma with (acute) exacerbation (principal); J06.9 Acute upper respiratory infection, unspecified; M10.9 Gout, unspecified; I10 Essential (primary) hypertension; Z23 Encounter for immunization
CPT/HCPCS: 96365; 96367; 93005; 87040 ×2; 85025 ×2; 80048 ×2; 36415; 83735 ×2; 84100; 85610; 80076; 81003 ×2; 84484; 83880; 87804 ×2; 71045; 90471; 94010; 94640 ×2; 94760 ×2; 96375; 99285; Q2035; J1650; J7030; J2930; J2405; J2920; G0378 ×2; G0008

== ENCOUNTER 2019-09-14 17:56 | Observation (INO) | payer OTHER ==
[2019-09-15 00:02] VITALS: BMI 28.0
[2019-09-15 08:20] VITALS: O2SAT 97
[2019-09-15 12:49] VITALS: BP 119/74; TEMP 97.9
== END 2019-09-15 14:58 | disposition home or self-care (01) ==
LOC: ER 17:56 → ERHOLD 21:01 → 2ND 21:48
PROVIDERS: ADMIT Hospitalist; ATTEND Family Medicine
DX: R07.89 Other chest pain (principal); M54.9 Dorsalgia, unspecified; E78.5 Hyperlipidemia, unspecified; J45.909 Unspecified asthma, uncomplicated; M10.9 Gout, unspecified; K40.90 Unilateral inguinal hernia, without obstruction or gangrene, not specified as recurrent; K76.0 Fatty (change of) liver, not elsewhere classified; I45.10 Unspecified right bundle-branch block; Z91.81 History of falling
CPT/HCPCS: 36415; 71045; 71275; 74175; 80048; 80061; 80076; 83735; 83880; 84484; 85025; 85610; 93005; 93306; 96374; 96375; 99285; G0378; J1650; J2270; J3010; Q9967

== ENCOUNTER 2020-02-17 08:37 | Emergency (ER) | payer OTHER ==
[2020-02-17] MEDS ORDERED: METHYLPREDNISOLONE 125 MG INJ ONE (09:37)
[2020-02-17] MEDS ORDERED: ALBUTEROL 2.5 MG/3 ML NEB SOL ONE (09:37)
[2020-02-17] MEDS ORDERED: HYDROCODONE/CHLORPHEN 5 ML/OSYR ONE (09:37)
[2020-02-17] MEDS ORDERED: IPRATROPIUM BROM 0.5MG/2.5ML ONE (09:37)
--- NOTE | 2020-02-17 09:41 | RAD REPORT ---
EXAM DESCRIPTION: Karla Single View02/17/2020 9:36 am CLINICAL HISTORY: Cough COMPARISON: August 2019 FINDINGS: The lungs appear clear of acute infiltrate. The heart is normal size IMPRESSION: No acute abnormalities displayed
[2020-02-17 10:03] LABS: Protime INR 0.97
[2020-02-17 10:18] LABS: ALT/SGPT 39 U/L (12-78); AST/SGOT 23 U/L (15-37); Absolute Lymphocytes (CBC) 1.6 K/uL (0.7-4.9); Albumin 3.8 g/dL (3.4-5.0); Alkaline Phosphatase 99 U/L (45-117); BUN Blood Urea Nitrogen 8 mg/dL (7-18); Basophils % 0.5 % (0-1.3); Bicarbonate 27 mmol/L (21-32); Bilirubin Direct 0.1 mg/dL (0-0.2); Bilirubin Total 0.6 mg/dL (0.2-1.0); Glucose Level 96 mg/dL (74-106); Hematocrit 44.4 % (39.6-49.0); MPV 8.9 fL (7.6-11.3); Magnesium 2.3 mg/dL (1.8-2.4); NT PRO-BNP 36 pg/mL (<125); Potassium 3.5 mmol/L (3.5-5.1); Protein, Total 7.7 g/dL (6.4-8.2); RBC Red Blood Cell Count 4.78 M/uL (4.33-5.43); Sodium Level 135 mmol/L (136-145); Troponin (Emerg Dept Use Only) < 0.02 ng/mL (0.0-0.045)
[2020-02-17 10:20] LABS: C-Reactive Protein < 2.90 mg/L (<3.00)
--- NOTE | 2020-02-17 11:17 | ER ---
Nurse's Notes [facility] Name: Scott Liao Age: 64 yrs Sex: Male : 1955 Arrival Date: 02/17/2020 Time: 08:38 Bed 2 Private MD: Diagnosis: Mild intermittent asthma with (acute) exacerbation;Acute bronchitis Presentation: 02/16 08:41 Chief complaint: Patient states: SOB, productive cough, nasal congestion, sore throat x sv 4-5 days ago. Coronavirus screen: Client denies travel out of the [place] in the last 14 days. cough unrelated to allergies, shortness of breath, sore throat, Client presents with at least one sign or symptom that may indicate coronavirus-19. Standard/surgical mask placed on the client. Provider contacted for isolation considerations. Ebola Screen: No symptoms or risks identified at this time. Risk Assessment: Do you want to hurt yourself or someone else? Patient reports no desire to harm self or others. Onset of symptoms was January 2020. 08:41 Method Of Arrival: Ambulatory sv 08:41 Acuity: JOANA 3 sv 08:43 Initial Sepsis Screen: Does the patient meet any 2 criteria? RR > 20 per min. No. sv Patient's initial sepsis screen is negative. Does the patient have a suspected source of infection? Yes: Productive cough/pneumonia. Historical: - Allergies: 08:42 No Known Allergies; sv - PMHx: 08:42 Asthma; Gout; Hypertension; sv - PSHx: 08:42 Eye; Knee surgery; Back; left leg with metal plates; sv - Immunization history:: Adult Immunizations up to date. - Social history:: Smoking status: Patient denies any tobacco usage or history of. Screenin:32 Abuse screen: Denies threats or abuse. Denies injuries from another. Nutritional ph screening: No deficits noted. Tuberculosis screening: No symptoms or risk factors identified. Fall Risk None identified. Assessment: 09:30 General: Appears in no apparent distress. uncomfortable, well groomed, Behavior is ph calm, cooperative, appropriate for age, Denies fever. Pain: Complains of pain in back and chest Aggravated by coughing. Neuro: Level of Consciousness is awake, alert, obeys commands, Oriented to person, place, time, situation. Cardiovascular: Reports None fatigue, shortness of breath, vomiting, Denies nausea, palpitations, syncope, Rhythm is regular. Respiratory: Reports shortness of breath at rest cough that is persistent Airway is patent Respiratory effort is even, unlabored, Respiratory pattern is regular, symmetrical. GI: Reports vomiting, after coughing episodes. EENT: Reports nasal congestion nasal discharge. Derm: Skin is intact, is healthy with good turgor, Skin is pink, warm \T\ dry. Musculoskeletal: Circulation, motion, and sensation intact. Range of motion: intact in all extremities. 10:43 Reassessment: Patient appears in no apparent distress at this time. Patient and/or ph family updated on plan of care and expected duration. Pain level reassessed. Patient is alert, oriented x 3, equal unlabored respirations, skin warm/dry/pink. Coughing has decreased after PO cough medication, pt resting comfortably w/ stable vitals, awaiting lab results, friend at bedside. 11:50 Reassessment: Patient appears in no apparent distress at this time. Patient and/or ph family updated on plan of care and expected duration. Pain level reassessed. Patient is alert, oriented x 3, equal unlabored respirations, skin warm/dry/pink. D/C paperwork signed by pt, waiting to speak w/ provider before d/c. Vital Signs: 08:43 BP 135 / 90; Pulse 97; Resp 22; Temp 98.7; Pulse Ox 100% ; Weight 88.45 kg; Height 5 sv ft. 10 in. (177.80 cm); 10:43 BP 135 / 85; Pulse 101; Resp 22; Pulse Ox 99% on R/A; ph 11:45 BP 127 / 86; Pulse 91; Resp 20; Temp 97.9; Pulse Ox 99% on R/A; ph 08:43 Body Mass Index 27.98 (88.45 kg, 177.80 cm) sv ED Course: 08:38 Patient arrived in ED. ds1 08:41 Arm band placed on. sv 08:42 Triage completed. sv 09:03 Margoth Gutiérrez, RENETTA is Primary Nurse. ph 09:13 Wade Whipple PA is PHCP. jr8 09:13 González Maldonado MD is Attending Physician. jr8 09:16 Patient has correct armband on for positive identification. Placed in gown. Bed in low mh5 position. Call light in reach. Side rails up X2. Warm blanket given. mail clerk on. Pulse ox on. NIBP on. 09:34 XRAY Chest (1 view) In Process Unspecified. EDMS 09:45 Inserted saline lock: 20 gauge in right antecubital area, using aseptic technique. ph Blood collected. 09:55 Initial Neb Treatment Given as ordered. ph 12:06 No provider procedures requiring assistance completed. IV discontinued, intact, ph bleeding controlled, No redness/swelling at site. Pressure dressing applied. Administered Medications: 09:40 Drug: Tussionex Pennkinetic ER 5 ml Route: PO; ph 12:06 Follow up: Response: No adverse reaction; Marked relief of symptoms ph 09:55 Drug: Albuterol - atroVENT (3:1) (2.5 mg - 0.5 mg) 3 ml Route: Nebulizer; ph 12:06 Follow up: Response: No adverse reaction ph 09:55 Drug: SOLU-Medrol 125 mg Route: IVP; Site: right antecubital; ph 12:06 Follow up: Response: No adverse reaction ph Outcome: 11:16 Discharge ordered by MD. may 12:06 Discharged to home ambulatory. ph 12:06 Condition: good 12:06 Discharge instructions given to patient, Instructed on discharge instructions, follow up and referral plans. medication usage, Demonstrated understanding of instructions, follow-up care, medications, Prescriptions given X 4. 12:07 Patient left the ED. ph Addendum: 02/20/2020 11:48 Addendum: COVID-19 Result: Negative result given to RN to notify pt. Notified pt of s s negative COVID 19 swab results. Pt advised that even with a negative test result they should remain in isolation until symptom free for 3 days without medication. Pt also advised to return to the ED for worsening symptoms. Signatures: Dispatcher [employer] EDMS Caren Jones RN RN sv Sanford, Demi ds1 Yane Roque RN RN ss Roszak, Josh, PA PA jr8 Margoth Gutiérrez RN RN Tisha Joseph [facility]
--- NOTE | 2020-02-17 11:17 | EDPHYS ---
Physician Documentation [facility] Name: Scott Liao Age: 64 yrs Sex: Male : 1955 Arrival Date: 02/17/2020 Time: 08:38 Bed 2 Private MD: ED Physician González Maldonado HPI: 02/16 09:37 This 64 yrs old Male presents to ER via Ambulatory with complaints of Cough, jr8 Shortness Of Breath. 09:37 The patient or guardian reports cough, that is intermittent, described as moderate, jr8 with no sputum, difficulty breathing. Onset: The symptoms/episode began/occurred gradually, 4 day(s) ago. Severity of symptoms: At their worst the symptoms were moderate, in the emergency department the symptoms are unchanged. Modifying factors: The symptoms are alleviated by nothing. Associated signs and symptoms: The patient has no apparent associated signs or symptoms. The patient has not experienced similar symptoms in the past. The patient has not recently seen a physician. Patient stated that he has been taking his albuterol nebulizers at home but shortness of breath and cough getting worse . Historical: - Allergies: 08:42 No Known Allergies; sv - PMHx: 08:42 Asthma; Gout; Hypertension; sv - PSHx: 08:42 Eye; Knee surgery; Back; left leg with metal plates; sv - Immunization history:: Adult Immunizations up to date. - Social history:: Smoking status: Patient denies any tobacco usage or history of. ROS: 09:37 Eyes: Negative for injury, pain, redness, and discharge, ENT: Negative for injury, jr8 pain, and discharge, Neck: Negative for injury, pain, and swelling, Cardiovascular: Negative for chest pain, palpitations, and edema, Abdomen/GI: Negative for abdominal pain, nausea, vomiting, diarrhea, and constipation, Back: Negative for injury and pain, MS/Extremity: Negative for injury and deformity, Skin: Negative for injury, rash, and discoloration, Neuro: Negative for headache, weakness, numbness, tingling, and seizure. 09:37 Respiratory: Positive for cough, dyspnea on exertion, shortness of breath, wheezing. Exam: 09:37 Eyes: Pupils equal round and reactive to light, extra-ocular motions intact. Lids and jr8 lashes normal. Conjunctiva and sclera are non-icteric and not injected. Cornea within normal limits. Periorbital areas with no swelling, redness, or edema. ENT: Nares patent. No nasal discharge, no septal abnormalities noted. Tympanic membranes are normal and external auditory canals are clear. Oropharynx with no redness, swelling, or masses, exudates, or evidence of obstruction, uvula midline. Mucous membranes moist. Neck: Trachea midline, no thyromegaly or masses palpated, and no cervical lymphadenopathy. Supple, full range of motion without nuchal rigidity, or vertebral point tenderness. No Meningismus. Cardiovascular: Regular rate and rhythm with a normal S1 and S2. No gallops, murmurs, or rubs. Normal PMI, no JVD. No pulse deficits. Abdomen/GI: Soft, non-tender, with normal bowel sounds. No distension or tympany. No guarding or rebound. No evidence of tenderness throughout. Back: No spinal tenderness. No costovertebral tenderness. Full range of motion. Skin: Warm, dry with normal turgor. Normal color with no rashes, no lesions, and no evidence of cellulitis. MS/ Extremity: Pulses equal, no cyanosis. Neurovascular intact. Full, normal range of motion. Neuro: Awake and alert, GCS 15, oriented to person, place, time, and situation. Cranial nerves II-XII grossly intact. Motor strength 5/5 in all extremities. Sensory grossly intact. Cerebellar exam normal. Normal gait. 09:37 Respiratory: the patient does not display signs of respiratory distress, Respirations: tachypnea, that is mild, Breath sounds: wheezing: expiratory that is mild, is heard diffusely. Vital Signs: 08:43 BP 135 / 90; Pulse 97; Resp 22; Temp 98.7; Pulse Ox 100% ; Weight 88.45 kg; Height 5 sv ft. 10 in. (177.80 cm); 10:43 BP 135 / 85; Pulse 101; Resp 22; Pulse Ox 99% on R/A; ph 11:45 BP 127 / 86; Pulse 91; Resp 20; Temp 97.9; Pulse Ox 99% on R/A; ph 08:43 Body Mass Index 27.98 (88.45 kg, 177.80 cm) sv MDM: 09:16 Patient medically screened. [facility] 11:15 Data reviewed: vital signs, nurses notes, lab test result(s), EKG, radiologic studies, plain films, and as a result, I will discharge patient. Data interpreted: Pulse oximetry: on room air is 99 %. Interpretation: normal. Counseling: I had a detailed discussion with the patient and/or guardian regarding: the historical points, exam findings, and any diagnostic results supporting the discharge/admit diagnosis, lab results, radiology results, the need for outpatient follow up, a family practitioner, to return to the emergency department if symptoms worsen or persist or if there are any questions or concerns that arise at home. Response to treatment: the patient's symptoms have mildly improved after treatment. 02/16 09:13 Order name: Basic Metabolic Panel; Complete Time: 10:02/16 09:13 Order name: CBC with Diff 02/16 09:13 Order name: LFT's; Complete Time: :02/16 09:13 Order name: Magnesium; Complete Time: 10:02/16 09:13 Order name: NT PRO-BNP; Complete Time: 10:02/16 09:13 Order name: PT-INR; Complete Time: 10:02/16 09:13 Order name: Troponin (emerg Dept Use Only); Complete Time: 10:02/16 09:13 Order name: XRAY Chest (1 view); Complete Time: 09:42 02/16 09:13 Order name: CRP; Complete Time: 10:21 02/16 09:16 Order name: Influenza Screen (a \T\ B); Complete Time: 11:15 02/16 09:16 Order name: COVID-19 02/16 10:20 Order name: Manual Differential EDMS 02/16 09:13 Order name: EKG; Complete Time: 09:14 02/16 09:13 Order name: Cardiac monitoring; Complete Time: 09:16 02/16 09:13 Order name: EKG - Nurse/Tech; Complete Time: 09:16 02/16 09:13 Order name: IV Saline Lock; Complete Time: 10:25 02/16 09:13 Order name: Labs collected and sent; Complete Time: :02/16 09:13 Order name: O2 Per Protocol; Complete Time: 09:32 09/25 09:13 Order name: O2 Sat Monitoring; Complete Time: Administered Medications: 09:40 Drug: Tussionex Pennkinetic ER 5 ml Route: PO; ph 12:06 Follow up: Response: No adverse reaction; Marked relief of symptoms ph 09:55 Drug: Albuterol - atroVENT (3:1) (2.5 mg - 0.5 mg) 3 ml Route: Nebulizer; ph 12:06 Follow up: Response: No adverse reaction ph 09:55 Drug: SOLU-Medrol 125 mg Route: IVP; Site: right antecubital; ph 12:06 Follow up: Response: No adverse reaction ph Disposition: 17:04 Co-signature as Attending Physician, González Maldonado MD I agree with the assessment and kdr plan of care. Disposition: 02/17/20 11:16 Discharged to Home. Impression: Mild intermittent asthma with (acute) exacerbation, Acute bronchitis. - Condition is Stable. - Discharge Instructions: Acute Bronchitis, Adult, Asthma, Adult. - Prescriptions for Prednisone 20 mg Oral Tablet - take 1 tablet by ORAL route once daily for 5 days; 5 tablet. Albuterol Sulfate 2.5 mg /3 mL (0.083 %) Inhalation Solution for Nebulization - inhale 1 unit by NEBULIZATION route every 8 hours As needed; 1 box. Albuterol Sulfate 90 mcg/actuation - inhale 1-2 puff by INHALATION route every 4-6 hours; 1 Inhaler. promethazine- DM - take 5 milliliter by ORAL route every 4-6 hours As needed Max: 30mL/24h; 120 milliliter. - Medication Reconciliation Form, Thank You Letter, Antibiotic Education, Prescription Opioid Use form. - Follow up: Private Physician; When: 2 - 3 days; Reason: Recheck today's complaints, Continuance of care, Re-evaluation by your physician. - Problem is new. - Symptoms have improved. Signatures: Dispatcher [employer] Caren Peguero, RENETTA RN González Underwood MD MD kdr Roszak, Josh, PA PA jr8 Margoth Gutiérrez RN RN ph Corrections: (The following items were deleted from the chart) 12:07 11:16 02/17/2020 11:16 Discharged to Home. Impression: Mild intermittent asthma with ph (acute) exacerbation; Acute bronchitis. Condition is Stable. Forms are Medication Reconciliation Form, Thank You Letter, Antibiotic Education, Prescription Opioid Use. Follow up: Private Physician; When: 2 - 3 days; Reason: Recheck today's complaints, Continuance of care, Re-evaluation by your physician. Problem is new. Symptoms have improved. jr8
[2020-02-17 12:08] LABS: Blood Morphology Comment NOT SEEN (NOT SEEN); Platelet Estimate ADEQ
[2020-02-17 12:14] VITALS: O2SAT 99
[2020-02-17 12:16] VITALS: BP 127/86; TEMP 97.9
--- NOTE | 2020-02-18 12:27 | EKG ---
Test Date: 2020-02-17 Test Time: 09:36:07 Motor Carrier Inspector: JEANNE MEASUREMENT RESULTS: Intervals: Rate: 78 [place]: 156 QRSD: 114 QT: 382 QTc: 435 [place]: P: 39 [place]: 156 QRS: 22 T: 17 INTERPRETIVE STATEMENTS: Normal sinus rhythm Normal ECG Compared to ECG 09/15/2019 09:13:55 Left ventricular hypertrophy no longer present Electronically Signed On 02-18-20 12:24:42 CDT by Hector Alexis
== END 2020-02-17 12:07 | disposition home or self-care (01) ==
LOC: ER 08:37
DX: J45.21 Mild intermittent asthma with (acute) exacerbation (principal); J20.9 Acute bronchitis, unspecified; Z20.828 Contact with and (suspected) exposure to other viral communicable diseases; I10 Essential (primary) hypertension
CPT/HCPCS: 93005; 85025; 80048; 36415; 83735; 85610; 80076; 84484; 83880; 86140; 87804 ×2; 71045; 96374; 99285; J2930; U0002

== ENCOUNTER 2021-11-09 14:27 | Emergency (ER) | payer OTHER ==
[2021-11-09 15:09] LABS: Absolute Lymphocytes (CBC) 1.7 K/uL (0.7-4.9); Hematocrit 42.4 % (39.6-49.0); Lymphocytes % 21.3 % (15.3-44.8); MPV 8.5 fL (7.6-11.3); Protime INR 0.98; RBC Red Blood Cell Count 4.64 M/uL (4.33-5.43)
--- NOTE | 2021-11-09 15:23 | RAD REPORT ---
EXAM DESCRIPTION: RAD - Chest Single View - 11/09/2021 3:17 pm CLINICAL HISTORY: syncope Chest pain. COMPARISON: Chest Single View dated 02/17/2020; Chest Single View dated 09/14/2019; Chest Single View dated 07/15/2019; Chest Single View dated 06/06/2019 FINDINGS: Portable technique limits examination quality. The lungs are grossly clear. The heart is normal in size. No displaced fractures. IMPRESSION: No acute intrathoracic process suspected.
[2021-11-09 15:28] LABS: Albumin 3.5 g/dL (3.4-5.0); Bilirubin Direct 0.1 mg/dL (0-0.2); Bilirubin Total 0.6 mg/dL (0.2-1.0); Magnesium 2.1 mg/dL (1.8-2.4); Potassium 3.6 mmol/L (3.5-5.1); Troponin High Sensitivity 9.8 pg/mL (<58.9)
--- NOTE | 2021-11-09 19:14 | ER ---
Nurse's Notes [facility] Name: Scott Liao Age: 66 yrs Sex: Male : 1955 Arrival Date: 11/09/2021 Time: 14:30 Bed 3 Private MD: Diagnosis: Syncope Near Presentation: 11/09 14:32 Chief complaint: Patient states: near syncope episode. Coronavirus screen: Vaccine pedroza status: Patient reports receiving the 2nd dose of the covid vaccine. Ebola Screen: Patient denies travel to an Ebola-affected area in the 21 days before illness onset. Initial Sepsis Screen: Does the patient meet any 2 criteria? No. Patient's initial sepsis screen is negative. Does the patient have a suspected source of infection? No. Patient's initial sepsis screen is negative. Risk Assessment: Do you want to hurt yourself or someone else? Patient reports no desire to harm self or others. Onset of symptoms was November 09, 2021. 14:32 Method Of Arrival: EMS: [facility] 14:32 Acuity: JOANA 3 pedroza Triage Assessment: 14:36 General: Appears in no apparent distress. General: Behavior is calm, cooperative. Pain: pedroza Denies pain. Historical: - Home Meds: 14:36 allopurinol 300 mg Oral tab 1 tab as needed for Gouty Arthritis [Active]; blood pedroza pressure medicine [Active]; colchicine 0.6 mg Oral cap 1 cap as needed [Active]; - PMHx: 14:36 Asthma; Gout; Hypertension; pedroza - Immunization history:: Adult Immunizations up to date. - Social history:: Smoking status: Patient denies any tobacco usage or history of. Screenin:44 Abuse screen: Denies threats or abuse. Denies injuries from another. Abuse screen: pedroza Denies threats or abuse. Nutritional screening: No deficits noted. Tuberculosis screening: No symptoms or risk factors identified. Fall Risk None identified. Assessment: 15:12 General: Appears in no apparent distress. Behavior is calm, cooperative. Pain: Denies pedroza pain. 15:12 Cardiovascular: Reports syncope. pedroza Vital Signs: 14:32 BP 139 / 80; Pulse 77; Resp 18; Temp 97.8(O); Pulse Ox 99% ; Weight 96.16 kg; Height 5 pedroza ft. 10 in. (177.80 cm); 16:26 BP 116 / 78; Pulse 73; Resp 18; Pulse Ox 100% on R/A; ph 17:56 BP 116 / 90 Supine; Pulse 72; Resp 17; Pulse Ox 98% ; pedroza 17:56 BP 134 / 89 Sitting; Pulse 83; Resp 18; Pulse Ox 100% ; pedroza 17:56 BP 135 / 89 Standing; Pulse 81; Resp 18; Pulse Ox 99% ; pedroza 19:18 BP 134 / 94; Pulse 65; Resp 18 S; Pulse Ox 100% on R/A; as6 14:32 Body Mass Index 30.42 (96.16 kg, 177.80 cm) pedroza ED Course: 14:30 Patient arrived in ED. pedroza 14:30 Gerardo Simms PA is PHCP. [facility] 14:30 Maritza Sky MD is Attending Physician. m 14:36 Triage completed. pedroza 14:36 Arm band placed on. pedroza 14:44 Patient has correct armband on for positive identification. Bed in low position. pedroza 14:44 No provider procedures requiring assistance completed. pedroza 14:59 Call light in reach. Side rails up X 1. Door closed. Noise minimized. Warm blanket mb7 given. 14:59 SARS-COV-2 RT PCR (Document "Date of Onset" if Symptomatic) Sent. mb7 14:59 Basic Metabolic Panel Sent. mb7 14:59 CBC with Diff Sent. mb7 14:59 LFT's Sent. mb7 14:59 Troponin HS Sent. mb7 14:59 Magnesium Sent. mb7 14:59 NT PRO-BNP Sent. mb7 14:59 PT-INR Sent. mb7 15:11 EKG done, by ED staff, reviewed by Gerardo ROSEN. mb7 15:12 Idalia Jama, RN is Primary Nurse. pedroza 15:18 XRAY Chest (1 view) In Process Unspecified. EDMS 19:08 Primary Nurse role handed off by Idalia Jama, RENETTA as6 19:08 Noe Salazar, RENETTA is Primary Nurse. as6 19:20 IV discontinued, intact, bleeding controlled, No redness/swelling at site. Pressure as6 dressing applied. Administered Medications: No medications were administered Medication: 14:44 VIS not applicable for this client. pedroza Outcome: 19:13 Discharge ordered by . jmm 19:20 Discharged to home ambulatory. as6 19:20 Condition: stable 19:20 Discharge instructions given to patient, Instructed on discharge instructions, follow up and referral plans. Demonstrated understanding of instructions, follow-up care. 19:21 Patient left the ED. as6 Signatures: Dispatcher [employer] EDGerardo Maya PA PA jmm Hall, Patricia, RN RN Noe Zamarripa RN RN as6 Daiana Sheppard mb7 Idalia Jama RN RN pedroza
--- NOTE | 2021-11-09 19:15 | EDPHYS ---
Physician Documentation [facility] Name: Scott Liao Age: 66 yrs Sex: Male : 1955 Arrival Date: 11/09/2021 Time: 14:30 Bed 3 Private MD: ED Physician Maritza Sky HPI: 11/09 14:30 This 66 yrs old Male presents to ER via EMS with complaints of syncope. jmm 14:30 The patient has experienced near-syncope. Onset: The symptoms/episode began/occurred jmm gradually. Duration: This was a single episode. Associated injury: The patient did not suffer any apparent associated injury. This is a 66 year old male with with a history of asthma, and htn that presents to the ED with complaints of near syncope which occurred while outside. Patient states he attempted to sit in his car with the air conditions but he could not keep his eyes open. Denies chest pain or shortness of breath. Historical: - Home Meds: 14:36 allopurinol 300 mg Oral tab 1 tab as needed for Gouty Arthritis [Active]; blood pedroza pressure medicine [Active]; colchicine 0.6 mg Oral cap 1 cap as needed [Active]; - PMHx: 14:36 Asthma; Gout; Hypertension; pedroza - Immunization history:: Adult Immunizations up to date. - Social history:: Smoking status: Patient denies any tobacco usage or history of. ROS: 14:30 Cardiovascular: Negative for chest pain, palpitations, and edema, Respiratory: Negative jmm for shortness of breath, cough, wheezing, and pleuritic chest pain, Abdomen/GI: Negative for abdominal pain, nausea, vomiting, diarrhea, and constipation, Back: Negative for injury and pain. 14:30 Constitutional: Positive for fatigue. 14:30 Neuro: Positive for near syncope. 14:30 All other systems are negative. Exam: 14:30 Constitutional: This is a well developed, well nourished patient who is awake, alert, jmm and in no acute distress. Head/Face: atraumatic. Eyes: EOMI, no conjunctival erythema appreciated ENT: Moist Mucus Membranes Neck: Trachea midline, Supple Chest/axilla: Normal chest wall appearance and motion. Cardiovascular: Regular rate and rhythm. No edema appreciated Respiratory: Normal respirations, no respiratory distress appreciated Abdomen/GI: Non distended, soft Back: Normal ROM Skin: General appearance color normal MS/ Extremity: Moves all extremities, no obvious deformities appreciated, no edema noted to the lower extremities Neuro: Awake and alert Psych: Behavior is normal, Mood is normal, Patient is cooperative and pleasant Vital Signs: 14:32 BP 139 / 80; Pulse 77; Resp 18; Temp 97.8(O); Pulse Ox 99% ; Weight 96.16 kg; Height 5 pedroza ft. 10 in. (177.80 cm); 16:26 BP 116 / 78; Pulse 73; Resp 18; Pulse Ox 100% on R/A; ph 17:56 BP 116 / 90 Supine; Pulse 72; Resp 17; Pulse Ox 98% ; pedroza 17:56 BP 134 / 89 Sitting; Pulse 83; Resp 18; Pulse Ox 100% ; pedroza 17:56 BP 135 / 89 Standing; Pulse 81; Resp 18; Pulse Ox 99% ; pedroza 19:18 BP 134 / 94; Pulse 65; Resp 18 S; Pulse Ox 100% on R/A; as6 14:32 Body Mass Index 30.42 (96.16 kg, 177.80 cm) pedroza MDM: 14:[address] [facility] 19:13 Data reviewed: vital signs, nurses notes. Counseling: I had a detailed discussion with rachna the patient and/or guardian regarding: the historical points, exam findings, and any diagnostic results supporting the discharge/admit diagnosis, the need for outpatient follow up, to return to the emergency department if symptoms worsen or persist or if there are any questions or concerns that arise at home. ED course: Labs unremarkable. Advised to follow up with pcp and otherwise given strict return precautions. Patient understood and agrees with the plan of care. . 11/09 14:31 Order name: Basic Metabolic Panel; Complete Time: 15:33 [facility] 11/09 14:31 Order name: CBC with Diff; Complete Time: 15:33 [facility] 11/09 14:31 Order name: LFT's; Complete Time: 15:33 [facility] 11/09 14:31 Order name: Magnesium; Complete Time: 15:33 [facility] 11/09 14:31 Order name: NT PRO-BNP; Complete Time: 15:33 [facility] 11/09 14:31 Order name: PT-INR; Complete Time: 15:33 [facility] 11/09 14:31 Order name: Troponin HS; Complete Time: 15:33 [facility] 11/09 14:31 Order name: XRAY Chest (1 view); Complete Time: 15:33 [facility] 11/09 14:31 Order name: EKG; Complete Time: 14:32 [facility] 11/09 14:31 Order name: Cardiac monitoring; Complete Time: 15:12 [facility] 11/09 14:31 Order name: EKG - Nurse/Tech; Complete Time: 15:12 [facility] 11/09 14:31 Order name: Labs collected and sent; Complete Time: 15:12 [facility] 11/09 14:33 Order name: SARS-COV-2 RT PCR (Document "Date of Onset" if Symptomatic); Complete Time: [facility] 16:13 11/09 14:31 Order name: O2 Per Protocol; Complete Time: 14:59 [facility] 11/09 14:31 Order name: O2 Sat Monitoring; Complete Time: 14:59 [facility] 11/09 16:40 Order name: Orthostatics; Complete Time: 17:57 [facility] Administered Medications: No medications were administered Disposition Summary: 11/09/21 19:13 Discharge Ordered Location: Home [facility] Condition: Stable [facility] Diagnosis - Syncope Near [facility] Followup: [facility] - With: Private Physician - When: 2 - 3 days - Reason: Recheck today's complaints, Continuance of care, Re-evaluation by your physician Discharge Instructions: - Discharge Summary Sheet [facility] - Near-Syncope [facility] Forms: - Medication Reconciliation Form [facility] - Thank You Letter [facility] - Antibiotic Education [facility] - Prescription Opioid Use [facility] Signatures: Dispatcher [employer] EDGerardo Maya PA PA jmm Au-Stager, Heather RN RN pedroza Corrections: (The following items were deleted from the chart) 14:59 14:31 IV Saline Lock ordered. [facility] mb7
[2021-11-09 19:34] VITALS: TEMP 97.8
[2021-11-09 19:40] VITALS: BP 134/94; O2SAT 100
--- NOTE | 2021-11-11 11:53 | EKG ---
Test Date: 2021-11-09 Test Time: 15:04:34 Associate Accountant: MB MEASUREMENT RESULTS: Intervals: Rate: 70 IN: 174 QRSD: 118 QT: 386 QTc: 416 [place]: P: 73 IN: 174 QRS: 27 T: 30 INTERPRETIVE STATEMENTS: Normal sinus rhythm Incomplete right bundle branch block Borderline ECG Compared to ECG 02/17/2020 09:36:07 Incomplete right bundle-branch block now present Electronically Signed On 11-11-21 11:50:26 CDT by Hector Alexis
== END 2021-11-09 19:21 | disposition home or self-care (01) ==
LOC: ER 14:27
DX: R55 Syncope and collapse (principal); I10 Essential (primary) hypertension; J45.909 Unspecified asthma, uncomplicated; M10.9 Gout, unspecified; Z20.822 Contact with and (suspected) exposure to COVID-19
CPT/HCPCS: 85025; 80048; 36415; 83735; 85610; 80076; 84484; 83880; 71045; U0003; 93005; 99284

== ENCOUNTER 2024-09-15 14:36 | Emergency (ER) | payer OTHER ==
--- NOTE | 2024-09-15 15:44 | RAD REPORT ---
EXAM: Chest Single View HISTORY: 69 years Male DYSPNEA COMPARISON: 04/11/2024 FINDINGS: LUNGS/PLEURA: The lungs are clear. No pleural effusions or pneumothorax. No pulmonary edema. CARDIAC/MEDIASTINUM: The cardiac silhouette is within normal limits. UPPER ABDOMEN: No significant abnormality. BONES: No acute abnormality. LINES/TUBES/OTHER: N/A IMPRESSION: No evidence of acute cardiopulmonary disease. No significant change from prior.
[2024-09-15] MEDS ORDERED: ALBUTEROL 2.5 MG/3 ML NEB SOL ONE ×2 (16:58→20:57)
[2024-09-15] MEDS ORDERED: IPRATROPIUM BROM 0.5MG/2.5ML ONE ×2 (16:58→20:57)
[2024-09-15] MEDS ORDERED: METHYLPREDNISOLONE 125 MG INJ ONE (16:58)
[2024-09-15 17:24] LABS: Absolute Basophils 0.2 K/uL (0-0.5); Absolute Eosinophils 1.7 K/uL (0-0.5); Absolute Lymphocytes (CBC) 2.4 K/uL (0.7-4.9); Absolute Monocytes 0.8 K/uL (0.1-1.3); Absolute Neutrophil 4.3 K/uL (1.8-8.0); Basophils % 2.3 % (0-1.3); Eosinophils % 17.9 % (0-4.4); Hematocrit 41.6 % (39.6-49.0); Hemoglobin 14.4 g/dL (13.6-17.9); MCH 31.8 pg (27.0-35.0); MCHC 34.5 g/dL (32.0-36.0); MCV 92.2 fL (80-100); MPV 7.9 fL (7.6-11.3); Neutrophils % 45.8 % (41.7-73.7); Nucleated Red Blood Cells % 0.1 % (0-0); Platelets 216 thou/uL (152-406); RBC Red Blood Cell Count 4.52 M/uL (4.33-5.43)
[2024-09-15 17:27] LABS: Blood Morphology Comment NOT SEEN (NOT SEEN); Platelet Estimate ADEQ; White Blood Cell Scan OK (OK)
[2024-09-15 17:43] LABS: Anion Gap 7.6 mEq/L (5.0-15.0); Potassium 3.6 mEq/L (3.5-5.1); Troponin High Sensitivity 13.4 pg/mL (<58.9)
[2024-09-15 18:13] LABS: Influenza A Ag Negative; Influenza B Ag Negative; SARS-CoV-2 Antigen Rapid Res Negative (Negative)
[2024-09-15] MEDS ORDERED: Magnesium Sulfate 2gm IVPB 2 G/50 ML BAG IV ONE (20:57)
--- NOTE | 2024-09-15 21:54 | ER ---
Nurse's Notes [facility] Name: Scott Liao Age: 69 yrs Sex: Male : 1955 Arrival Date: 09/15/2024 Time: 14:36 Bed 16 Private MD: Diagnosis: Acute upper respiratory infection, unspecified Presentation: 09/15 15:15 Chief complaint: Patient states: cough, congestion x 3 days. Coronavirus screen: Client ss denies travel out of the [place] in the last 14 days. Ebola Screen: Patient denies exposure to infectious person. Patient denies travel to an Ebola-affected area in the 21 days before illness onset. 15:15 Method Of Arrival: Ambulatory ss 15:16 Initial Sepsis Screen: Does the patient meet any 2 criteria? No. Patient's initial ss sepsis screen is negative. Does the patient have a suspected source of infection? No. Patient's initial sepsis screen is negative. Risk Assessment: Do you want to hurt yourself or someone else? Patient reports no desire to harm self or others. Onset of symptoms was September 12, 2024. 15:16 Acuity: JOANA 3 ss Historical: - Allergies: 15:16 No Known Allergies; ss - PMHx: 15:16 Asthma; Gout; Hypertension; ss - Immunization history:: Adult Immunizations unknown. - Infectious Disease History:: Denies. - Social history:: Smoking status: Patient denies any tobacco usage or history of. Screenin:45 [facility] ED Fall Risk Assessment (Adult) History of falling in the last 3 months, kj2 including since admission No falls in past 3 months (0 pts) Confusion or Disorientation No (0 pts) Intoxicated or Sedated No (0 pts) Impaired Gait No (0 pts) Mobility Assist Device Used No (0 pt) Altered Elimination No (0 pt) Score/Fall Risk Level 0 - 2 = Low Risk Maintained a safe environment, Hourly rounding (assess needs \T\ fall precautionary measures) done. Abuse screen: Denies threats or abuse. Denies injuries from another. Nutritional screening: No deficits noted. Tuberculosis screening: No symptoms or risk factors identified. Assessment: 16:45 General: Appears in no apparent distress. Behavior is calm, cooperative. Pain: Denies kj2 pain. Neuro: Level of Consciousness is awake, alert, obeys commands, Oriented to person, place, time, situation. Cardiovascular: Patient's skin is warm and dry. Respiratory: Reports cough that is non-productive, Airway is patent Respiratory effort is unlabored, Breath sounds with rhonchi bilaterally. GI: No signs and/or symptoms were reported involving the gastrointestinal system. : No signs and/or symptoms were reported regarding the genitourinary system. 17:45 Reassessment: Patient appears in no apparent distress at this time. Patient and/or kj2 family updated on plan of care and expected duration. Pain level reassessed. Patient is alert, oriented x 3, equal unlabored respirations, skin warm/dry/pink. 18:45 Reassessment: Patient appears in no apparent distress at this time. Patient and/or kj2 family updated on plan of care and expected duration. Pain level reassessed. Patient is alert, oriented x 3, equal unlabored respirations, skin warm/dry/pink. 19:45 Reassessment: Patient appears in no apparent distress at this time. Patient and/or kj2 family updated on plan of care and expected duration. Pain level reassessed. Patient is alert, oriented x 3, equal unlabored respirations, skin warm/dry/pink. 20:45 Reassessment: Patient appears in no apparent distress at this time. Patient and/or kj2 family updated on plan of care and expected duration. Pain level reassessed. Patient is alert, oriented x 3, equal unlabored respirations, skin warm/dry/pink. 21:57 Reassessment: Patient appears in no apparent distress at this time. Patient and/or kj2 family updated on plan of care and expected duration. Pain level reassessed. Patient is alert, oriented x 3, equal unlabored respirations, skin warm/dry/pink. Vital Signs: 15:15 BP 145 / 83; Pulse 93; Resp 16; Temp 98.4(O); Pulse Ox 98% on R/A; Weight 92.99 kg; ss Height 5 ft. 10 in. ; Pain 0/10; 17:53 BP 130 / 85; Pulse 88; Resp 20; Pulse Ox 98% on R/A; ld1 19:00 BP 140 / 83; Pulse 78; Resp 20; Pulse Ox 97% ; kj2 20:00 BP 154 / 82; Pulse 80; Resp 20; Pulse Ox 100% on R/A; kj2 21:19 BP 158 / 91; Pulse 74; Resp 20; Pulse Ox 100% ; kj2 21:57 BP 154 / 88; Pulse 80; Resp 20; Temp 98; Pulse Ox 100% on R/A; kj2 15:15 Body Mass Index 29.41 (92.99 kg, 177.8 cm) ss 15:15 Pain Scale: Adult ss ED Course: 14:39 Patient arrived in ED. im 14:46 Tonja Koroma PA-C is PHCP. sb4 14:46 Steffen Escobar MD is Attending Physician. sb4 15:15 Arm band placed on right wrist. ss 15:16 Triage completed. ss 15:36 XRAY Chest (1 view) In Process Unspecified. EDMS 16:45 Bed in low position. Provided Education on: call light. kj2 16:46 Debora Riley, RN is Primary Nurse. kj2 17:00 Inserted saline lock: 20 gauge in left antecubital area, using aseptic technique. Blood kj2 collected. Flushed with 10 mL NS. 21:25 No provider procedures requiring assistance completed. kj2 21:59 IV discontinued, intact, bleeding controlled, No redness/swelling at site. Pressure kj2 dressing applied. Administered Medications: 17:17 Drug: MethylPrednisoLONE IVP 125 mg IVP once Route: IVP; Site: left antecubital; kj2 21:11 Follow up: Response: No adverse reaction kj2 17:17 Drug: DuoNeb Nebulize (3:1) (2.5 mg - 0.5 mg) 3 ml Nebulizer once Route: Nebulizer; kj2 21:11 Follow up: Response: No adverse reaction kj2 21:11 Drug: DuoNeb Nebulize (3:1) (2.5 mg - 0.5 mg) 3 ml Nebulizer once Route: Nebulizer; kj2 21:51 Follow up: Response: No adverse reaction kj2 21:11 Drug: Magnesium Sulfate IVPB 2 grams IVPB once over 30 mins Route: IVPB; Infused Over: kj2 30 mins; Site: left antecubital; 21:51 Follow up: IV Status: Completed infusion; IV Intake: 100ml kj2 Medication: 21:26 VIS not applicable for this client. kj2 Intake: 21:51 IV: 100ml; Total: 100ml. kj2 Outcome: 21:53 Discharge ordered by sb4 21:58 Discharged to home ambulatory, kj2 21:58 Condition: stable 21:58 Discharge instructions given to patient, Instructed on discharge instructions, follow up and referral plans. Demonstrated understanding of instructions, follow-up care, 22:07 Patient left the ED. kj2 Signatures: Dispatcher [employer] EDMS Yane Lucas RN RN ss Shital Umanzor RN RN ld1 Tonja Koroma, PA-C PA-C sb4 Miley Callejas Krystal, RN RN kj2 Corrections: (The following items were deleted from the chart) 15:19 15:15 BP 145 / 83; Pulse 93bpm; Resp 16bpm; Pulse Ox 98% RA; ss ss
--- NOTE | 2024-09-15 21:54 | EDPHYS ---
Physician Documentation [facility] Name: Scott Liao Age: 69 yrs Sex: Male : 1955 Arrival Date: 09/15/2024 Time: 14:36 Bed 16 Private MD: ED Physician Steffen Escobar HPI: 09/15 15:30 This 69 yrs old Male presents to ER via Ambulatory with complaints of Congestion, sb4 Shortness Of Breath. 15:30 Patient reports cough, congestion, shortness of breath x 3 days. Reports a history of sb4 asthma and has been using his rescue inhaler multiple times a day. States that he wakes up gasping for air. Denies any known fever, no chest pain. States he used to take Symbicort for his asthma but his insurance no longer covers it. Historical: - Allergies: 15:16 No Known Allergies; ss - PMHx: 15:16 Asthma; Gout; Hypertension; ss - Immunization history:: Adult Immunizations unknown. - Infectious Disease History:: Denies. - Social history:: Smoking status: Patient denies any tobacco usage or history of. ROS: 15:30 Constitutional: Negative for fever, chills, and weight loss, sb4 15:30 ENT: Positive for hoarseness, sore throat, 15:30 Respiratory: Positive for cough, dyspnea on exertion, shortness of breath, 15:30 All other systems are negative, Exam: 15:31 Head/Face: Normocephalic, atraumatic. Eyes: Extra-ocular motions intact. Periorbital sb4 areas with no swelling, redness, or edema. ENT: Mucous membranes moist. Cardiovascular: Regular rate and rhythm with a normal S1 and S2. Respiratory: No increased work of breathing, no retractions or nasal flaring. Abdomen/GI: Soft, non-tender, no distension. Skin: Warm, dry with normal turgor. Normal color with no rashes, no lesions, and no evidence of cellulitis. 15:31 Constitutional: The patient appears in no acute distress, alert, awake, 15:31 Respiratory: Breath sounds: wheezing: inspiratory is heard in the left posterior lower lobe and right posterior lower lobe, Vital Signs: 15:15 BP 145 / 83; Pulse 93; Resp 16; Temp 98.4(O); Pulse Ox 98% on R/A; Weight 92.99 kg; ss Height 5 ft. 10 in. ; Pain 0/10; 17:53 BP 130 / 85; Pulse 88; Resp 20; Pulse Ox 98% on R/A; ld1 19:00 BP 140 / 83; Pulse 78; Resp 20; Pulse Ox 97% ; kj2 20:00 BP 154 / 82; Pulse 80; Resp 20; Pulse Ox 100% on R/A; kj2 21:19 BP 158 / 91; Pulse 74; Resp 20; Pulse Ox 100% ; kj2 21:57 BP 154 / 88; Pulse 80; Resp 20; Temp 98; Pulse Ox 100% on R/A; kj2 15:15 Body Mass Index 29.41 (92.99 kg, 177.8 cm) ss 15:15 Pain Scale: Adult ss MDM: 14:46 Medical Screening Exam initiated sb4 20:20 Data reviewed: vital signs, nurses notes, lab test result(s), radiologic studies, and sb4 as a result, I will discharge patient. Counseling: I had a detailed discussion with the patient and/or guardian regarding the historical points, exam findings, and any diagnostic results supporting the discharge/admit diagnosis, lab results, radiology results, the need for outpatient follow up, for definitive care, to return to the emergency department if symptoms worsen or persist or if there are any questions or concerns that arise at home. 09/15 15:19 Order name: Basic Metabolic Panel; Complete Time: 17:43 sb4 09/15 15:19 Order name: CBC with Diff; Complete Time: 17:28 sb4 09/15 15:19 Order name: NT PRO-BNP; Complete Time: 17:43 sb4 09/15 15:19 Order name: Troponin HS; Complete Time: 17:43 sb4 09/15 15:19 Order name: COVID-19 Ag + Flu A+B Ag; Complete Time: 18:33 sb4 09/15 17:27 Order name: CBC Smear Scan; Complete Time: 17:28 EDMS 09/15 15:19 Order name: XRAY Chest (1 view); Complete Time: 15:44 sb4 09/15 15:19 Order name: Cardiac monitoring; Complete Time: 17:38 sb4 09/15 15:19 Order name: IV Saline Lock; Complete Time: 17:17 sb4 09/15 15:19 Order name: Labs collected and sent; Complete Time: 17:17 sb4 09/15 15:19 Order name: O2 Per Protocol; Complete Time: 17:17 sb4 09/15 15:19 Order name: O2 Sat Monitoring; Complete Time: 17:17 sb4 Administered Medications: 17:17 Drug: MethylPrednisoLONE IVP 125 mg IVP once Route: IVP; Site: left antecubital; kj2 21:11 Follow up: Response: No adverse reaction kj2 17:17 Drug: DuoNeb Nebulize (3:1) (2.5 mg - 0.5 mg) 3 ml Nebulizer once Route: Nebulizer; kj2 21:11 Follow up: Response: No adverse reaction kj2 21:11 Drug: DuoNeb Nebulize (3:1) (2.5 mg - 0.5 mg) 3 ml Nebulizer once Route: Nebulizer; kj2 21:51 Follow up: Response: No adverse reaction kj2 21:11 Drug: Magnesium Sulfate IVPB 2 grams IVPB once over 30 mins Route: IVPB; Infused Over: kj2 30 mins; Site: left antecubital; 21:51 Follow up: IV Status: Completed infusion; IV Intake: 100ml kj2 Disposition: 09/16 15:50 Co-signature as Attending Physician, Steffen Escobar MD I agree with the assessment and rick plan of care. Disposition Summary: 09/15/24 21:53 Discharge Ordered Notes: Location: Home sb4 Problem: new sb4 Symptoms: have improved sb4 Condition: Stable sb4 Diagnosis - Acute upper respiratory infection, unspecified sb4 Followup: sb4 - With: Emergency Department - When: As needed - Reason: Trouble breathing, Worsening of condition Discharge Instructions: - Discharge Summary Sheet sb4 - Upper Respiratory Infection, Adult, [id number] sb4 - Laryngitis, [id number] sb4 Forms: - Patient Portal Instructions sb4 - Leadership Thank You Letter sb4 Prescriptions: - Albuterol Sulfate 2.5 mg /3 mL (0.083 %) Inhalation Solution for Nebulization - inhale 1 unit NEBULIZATION route every 8 hours As needed; 30 unit; Refills: 0, sb4 Product Selection Permitted - Prednisone 20 mg Oral Tablet - take 1 tablet ORAL route every 12 hours for 5 days; 10 tablet; Refills: 0, sb4 Product Selection Permitted Signatures: Dispatcher [employer] Steffen Matthews MD MD cha Blanchard, Shelby, RN RN ss Tonja Koroma, SHERRIE PAJennifer sb4 Debora Riley RN RN kj2
[2024-09-15 23:13] VITALS: O2SAT 100
[2024-09-15 23:16] VITALS: BP 154/88; TEMP 98
== END 2024-09-15 22:07 | disposition home or self-care (01) ==
LOC: ER 14:36
DX: J06.9 Acute upper respiratory infection, unspecified (principal); I10 Essential (primary) hypertension; Z11.52 Encounter for screening for COVID-19
CPT/HCPCS: 96365; 85025; 80048; 36415; 84484; 83880; 71045; 96375; 99285; 87428; J3475; J7613 ×2; J7644 ×2; J2919